=== PATIENT | female | born 1950 | race Caucasian/White ===

== ENCOUNTER 2016-07-17 11:24 | Emergency (ER) | payer MEDICARE, OTHER ==
[2016-07-17 11:57] VITALS: RESP 18
[2016-07-17] MEDS ORDERED: HYDROcodone/APAP 5-325MG 1 EACH TAB PO STA (12:44)
--- NOTE | 2016-07-17 12:44 | ED ---
Lower Extremity Injury HPI - General Chief Complaint: Extremity Injury, Lower Stated Complaint: RT LEG INJURY Time Seen by Provider: 07/17/16 12:28 Source: patient, RN notes reviewed Mode of arrival: wheelchair Limitations: no limitations - History of Present Illness Initial Comments: 65-year-old female presents emergency Department chief complaint of right foot pain. Patient states she is walking on the stairs and she twisted her foot. Patient now has some pain and swelling along the lateral left foot and pain with bearing weight. Patient states that she did not hit her head and this other injuries from the incident. Patient does admit to a history of fracture to this foot in the past. Patient denies any fever chills or cough cold runny nose with this. Patient states there is no other injuries from the incident. Patient states that she was concerned due to the pain in the inability to bear weight so she thought that she should be evaluated. Patient denies any recent fever, chills, shortness of breath, chest pain, back pain, abdominal pain, nausea vomiting, numbness or tingling, dysuria or hematuria, constipation or diarrhea, headaches or visual changes, or any other current symptoms. - Related Data Home Medications Medication Instructions Recorded Confirmed Ibuprofen [Motrin] 800 mg PO HS PRN 07/17/16 07/17/16 Previous Rx's Medication Instructions Recorded Hydrocodone/Acetaminophen [[place] 1 each PO Q6HR PRN #20 tab 07/17/16 5-325] Allergies Allergy/AdvReac Type Severity Reaction Status Date / Time Penicillins Allergy Swelling Verified 07/17/16 12:13 aspirin AdvReac Abdominal Verified 07/17/16 12:13 Pain Review of Systems ROS Statement: Those systems with pertinent positive or pertinent negative responses have been documented in the HPI. ROS Other: All systems not noted in ROS Statement are negative. Past Medical History Past Medical History: No Reported History History of Any Multi-Drug Resistant Organisms: None Reported Past Surgical History: Appendectomy, Bowel Resection, Breast Surgery, Cholecystectomy Additional Past Surgical History / Comment(s): rotator cuff x3 Past Psychological History: No Psychological Hx Reported Smoking Status: Former smoker Past Alcohol Use History: Occasional Past Drug Use History: None Reported General Exam - General Exam Comments Initial Comments: General: The patient is awake and alert, in no distress, and does not appear acutely ill. Neck: The neck is supple, there is no tenderness. Cardiovascular: There is a regular rate and rhythm. No murmur, rub or gallop is appreciated. Respiratory: Lungs are clear to auscultation, respirations are non-labored, breath sounds are equal. No wheezes, stridor, rales, or rhonchi. Musculoskeletal: Sensation intact with 2+ pulses at the right extremity. full Range of motion right knee and right ankle and right foot. Patient is paraspinal and lateral aspect of the right foot and ankle. No deformity noted. No redness or erythema. No open wound. Patient is unable to bear weight due to pain. Neurological: CN II-XII intact, There are no obvious motor or sensory deficits. Coordination appears grossly intact. Speech is normal. Skin: Skin is warm and dry and no rashes or lesions are noted. Psychiatric: Normal mood and affect. Limitations: no limitations Course Vital Signs 07/17/16 11:54 Temperature 97.1 F L Pulse Rate 87 Respiratory 18 Rate Blood Pressure 192/86 O2 Sat by Pulse 98 Oximetry Procedures - Orthopedic Splinting/Casting Injury #1 Side: right Lower Extremity Injury Location: ankle Lower Extremity Immobilizer: posterior splint (short leg) Medical Decision Making - Medical Decision Making 65-year-old female presents emergency Department chief complaint of right foot pain after stepping on the stairs. Patient's x-ray does show that he has a avulsion fracture to the ankle. At this time we will send the patient and give her follow-up towards appear we did discuss crutches. We discussed return parameters and follow-up. Patient stated that she understood all questions have been answered. She will be discharged home. - Radiology Data Radiology results: report reviewed, image reviewed Disposition Clinical Impression: Avulsion fracture of right ankle Disposition: HOME SELF-CARE Condition: Stable Instructions: Ankle Fracture (ED) Additional Instructions: Please use medication as discussed. Please follow up with family doctor if symptoms have not improved over the next two days. Please return to the emergency room if your symptoms increase or worsen or for any other concerns. Prescriptions: Hydrocodone/Acetaminophen [[place] 5-325] 1 each PO Q6HR PRN #20 tab PRN Reason: Pain Referrals: Caitie Costa MD [Primary Care Provider] - 1-2 days Atul Centeno MD [STAFF PHYSICIAN] - 1-2 days Time of Disposition: 13:09
--- NOTE | 2016-07-17 13:06 | XR ---
EXAMINATION TYPE: 3 views right ankle. 3 views right foot. DATE OF EXAM: 07/17/2016 12:53 PM COMPARISON: NONE HISTORY: 65-year-old female with pain after fall. FINDINGS: Ankle: Ankle mortise remains congruent with preservation of the distal tibiofibular blood. There is a cortic ated 6 mm bone fragment below the lateral malleolus compatible with sequela of remote injury. There i s degenerative spurring anteriorly at the tibiotalar joint with underlying ankle joint effusion. Joon tional 6 mm bone fragment on the dorsal talar head on the lateral view. Otherwise, no acute fracture or dislocation seen. Foot: Moderate degenerative joint space narrowing with marginal spurring and subchondral cystic change at t he first MTP joint with mild hallux valgus and large bunion formation. Incidental Tran's toe. No ac wilton fracture or dislocation. Type I accessory navicular. IMPRESSION: 1. Ankle: 6 mm bone fragment along the dorsal talar head with adjacent soft tissue swelling and ankle joint effusion. An age indeterminate capsular avulsion fracture is suggested. Correlate for any pinp oint tenderness in this location to assess acuity. 2. Ankle: Some degenerative spurring anteriorly at the ankle and sequela of remote injury at the late ral malleolus. 3. 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 No acute osseous abn ormality seen.
[2016-07-17 13:30] VITALS: BP 187/95; PULSE 78; TEMP 97.6
== END 2016-07-17 13:30 | disposition home or self-care (01) ==
LOC: EC 11:24
DX: S82.891A Other fracture of right lower leg, initial encounter for closed fracture (principal); W10.9XXA Fall (on) (from) unspecified stairs and steps, initial encounter; M19.071 Primary osteoarthritis, right ankle and foot; M21.611 Bunion of right foot; M20.11 Hallux valgus (acquired), right foot; Z88.0 Allergy status to penicillin; Z87.891 Personal history of nicotine dependence
CPT/HCPCS: 29515; 99284

== ENCOUNTER 2018-01-12 13:47 | Emergency (ER) | payer MEDICARE, OTHER ==
[2018-01-12] MEDS ORDERED: methylPREDNISolone SOD SUCCI 125 MG/2 ML VIAL IV STA (13:56)
[2018-01-12] MEDS ORDERED: FAMOTIDINE 20 MG/2 ML VIAL IV STA (13:56)
[2018-01-12] MEDS ORDERED: ALBUTEROL NEBULIZED 2.5 MG/3 ML INHALATION STA (13:56)
[2018-01-12] MEDS ORDERED: diphenhydrAMINE 50 MG/ML 1 ML VIAL IVP STA (13:56)
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
[2018-01-12 16:17] VITALS: BP 154/65; PULSE 88; RESP 20; TEMP 98.3
== END 2018-01-12 16:00 | disposition home or self-care (01) ==
LOC: EC 13:47
DX: T78.2XXA Anaphylactic shock, unspecified, initial encounter (principal); Z87.891 Personal history of nicotine dependence; Z91.030 Bee allergy status; Z88.0 Allergy status to penicillin; Z88.6 Allergy status to analgesic agent
CPT/HCPCS: 94640; 99284; 96374; 96375 ×2; J1200; J2930

== ENCOUNTER 2020-01-07 11:55 | Emergency (ER) | payer OTHER, MEDICARE ==
[2020-01-07] MEDS ORDERED: IBUPROFEN 400 MG TAB PO STA (12:37)
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
--- NOTE | 2020-01-07 14:10 | XR ---
EXAMINATION TYPE: XR lumbar spine 2 or 3V DATE OF EXAM: 01/07/2020 Comparison: 06/13/2016 Clinical History: 69-year-old female low back pain, trauma Findings: Cholecystectomy clips. Bowel content obscures the lumbosacral junction on the frontal view. Hypertrop hic facet arthropathy especially in the mid to lower lumbar spine which raise grade 1 anterolisthesis at L4-L5. Mild to moderate degenerative disc disease scattered throughout. Vertebral body heights ar e preserved. Impression: Hypertrophic facet arthropathy with degenerative grade 1 anterolisthesis at L4-L5. Mild to moderate d egenerative disc disease throughout. No vertebral compression collapse.
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
[2020-01-07 14:51] VITALS: BP 152/74; PULSE 87; RESP 17; TEMP 98.3
== END 2020-01-07 14:51 | disposition home or self-care (01) ==
LOC: EC 11:55
DX: M54.2 Cervicalgia (principal); M54.5 Low back pain; M62.830 Muscle spasm of back; Z87.891 Personal history of nicotine dependence; Z88.0 Allergy status to penicillin; Z88.6 Allergy status to analgesic agent; Z91.030 Bee allergy status; V40.5XXA Car driver injured in collision with pedestrian or animal in traffic accident, initial encounter; Y92.488 Other paved roadways as the place of occurrence of the external cause; Y93.89 Activity, other specified
CPT/HCPCS: 72100; 72125; 99284

== ENCOUNTER 2020-06-23 08:50 | Emergency (ER) | payer MEDICARE, BC ==
[2020-06-23 08:56] VITALS: RESP 18; TEMP 97.9
[2020-06-23] MEDS ORDERED: HYDROcodone/APAP 5-325MG 1 EACH TAB PO STA (09:11)
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
--- NOTE | 2020-06-23 09:39 | CT ---
EXAMINATION TYPE: CT brain cspine wo con DATE OF EXAM: 06/23/2020 COMPARISON: 01/07/2020 HISTORY: fall, forehead contusion, htn CT DLP: 1185.7 mGycm, Automated exposure control for dose reduction was used. CONTRAST: Patient injected with 0 mL of Isovue 300. CT of the brain is performed utilizing 3 mm thick sections through the posterior fossa and 3 mm thick sections through the remaining calvarium. Study is performed within 24 hours of arrival to the hospital. No abnormal hyperdensity is present to suggest an acute intracranial hemorrhage. No mass lesion is evident. No acute infarcts are evident. Ventricles and sulci are appropriate for the patient age. Paranasal sinuses and mastoid air cells within the [id number] are clear. There is soft tissue swelling over the right periorbital region. IMPRESSIONS: 1. Normal CT brain. 2. Mild soft tissue swelling right supraorbital region. CT cervical spine. COMPARISON: None CT of the cervical spine is performed in the axial plane at 2 mm thick sections. Reconstructed image s in the coronal, and sagittal plane are reviewed on the computer. No acute fractures are evident. Vertebral body alignment is normal. Disc space narrowing is present C4-5 C5-6. Some endplate spurring posteriorly is evident at these lev els as well. Anterior vertebral body spurring is present C4-C6. Vertebral body heights are preserved. No spinal canal stenosis is evident. Uncovertebral joint hypertrophy is present C4-5 causing moderate bilateral foraminal stenosis. Modera te right and mild left foraminal stenosis is present C5-6. Moderate left and mild right foraminal konstantin nosis is present C6-7. IMPRESSIONS: 1. Degenerative disc changes, uncovertebral joint hypertrophy contributing to foraminal narrowing. Th tobin findings are greatest at C4-5 C5-6. 2. No acute osseous abnormality.
--- NOTE | 2020-06-23 09:41 | XR ---
EXAMINATION TYPE: XR forearm LT DATE OF EXAM: 06/23/2020 COMPARISON: None HISTORY: Pain, fall TECHNIQUE: 2 view left forearm FINDINGS: An acute fracture is not identified. Old fractures of the mid diaphyseal radius and ulna ar e present. In the AP projection there is some subtle lucency within the distal metaphyseal radius. A displaced f racture on the accompanying hand images however is not evident. IMPRESSION: 1. No acute osseous abnormality left forearm
--- NOTE | 2020-06-23 09:42 | XR ---
EXAMINATION TYPE: XR hand complete LT DATE OF EXAM: 06/23/2020 COMPARISON: None HISTORY: Fall, pain TECHNIQUE: Three-view left hand FINDINGS: Structures are osteopenic. Mild diffuse joint space narrowing of the proximal distal interp halangeal joint spaces may be present. Some degenerative changes at the first carpal metacarpal junct ion. Distal radius and ulna appear intact. No acute fractures or dislocations are evident. IMPRESSION: 1. No acute osseous abnormality left hand. 2. Osteopenia. This could be correlated with bone density.
[2020-06-23] MEDS ORDERED: cloNIDine HCL 0.2 MG TAB PO STA (09:54)
[2020-06-23 11:09] VITALS: BP 177/93; PULSE 70
== END 2020-06-23 11:06 | disposition home or self-care (01) ==
LOC: EC 08:50
DX: S00.83XA Contusion of other part of head, initial encounter (principal); S40.019A Contusion of unspecified shoulder, initial encounter; M25.532 Pain in left wrist; I10 Essential (primary) hypertension; J45.909 Unspecified asthma, uncomplicated; Z79.51 Long term (current) use of inhaled steroids; Z79.899 Other long term (current) drug therapy; Z91.030 Bee allergy status; Z88.0 Allergy status to penicillin; Z88.6 Allergy status to analgesic agent; Z88.8 Allergy status to other drugs, medicaments and biological substances; Z88.5 Allergy status to narcotic agent; Z87.891 Personal history of nicotine dependence; W18.30XA Fall on same level, unspecified, initial encounter; Y93.01 Activity, walking, marching and hiking; Y92.524 Gas station as the place of occurrence of the external cause
CPT/HCPCS: 29125; 70450; 72125; 99284

== ENCOUNTER 2020-06-27 13:42 | Emergency (ER) | payer MEDICARE, BC ==
[2020-06-27 13:47] VITALS: TEMP 98.2
[2020-06-27] MEDS ORDERED: KETOROLAC 15 MG/ML 1 ML VIAL IVP STA (14:11)
[2020-06-27] MEDS ORDERED: SODIUM CHLORIDE 0.9% 500 ML 500 ML IV STA (14:11)
--- NOTE | 2020-06-27 14:29 | XR ---
EXAMINATION TYPE: XR chest 1V portable DATE OF EXAM: 06/27/2020 COMPARISON: NONE HISTORY: Shortness of breath. TECHNIQUE: Single frontal view of the chest is obtained. FINDINGS: There is no focal air space opacity, pleural effusion, or pneumothorax seen. The cardiac silhouette size is within normal limits. The osseous structures are intact. IMPRESSION: No acute process.
[2020-06-27 14:50] LABS: Basophils # (A) 0.1 k/uL (0-0.2); Basophils % (A) 2 %; Eosinophils # (A) 0.1 k/uL (0-0.7); Eosinophils % (A) 2 %; HCT 39.4 % (34.0-46.0); HGB 13.6 gm/dL (11.4-16.0); Lymphocytes # (A) 1.2 k/uL (1.0-4.8); Lymphocytes % (A) 15 %; MCH 35.8 pg (25.0-35.0); MCHC 34.5 g/dL (31.0-37.0); MCV 103.7 fL (80.0-100.0); Macrocytosis Slight; Mean Platelet Volume 6.9; Monocytes # (A) 0.5 k/uL (0-1.0); Monocytes % (A) 6 %; Neutrophils # (A) 5.9 k/uL (1.3-7.7); Neutrophils % (A) 74 %; Platelet Count 260 k/uL (150-450); RDW 13.2 % (11.5-15.5)
[2020-06-27 15:04] LABS: ALT 46 U/L (4-34); AST 31 U/L (14-36); African American GFR (CKD) >90 (>60 ml/min/1.73 sqM); Albumin 4.2 g/dL (3.5-5.0); Alkaline Phosphatase 110 U/L (38-126); Anion Gap 6 mmol/L; Blood Urea Nitrogen 15 mg/dL (7-17); C Reactive Protein <5.0 mg/L (<10.0); Calcium 9.4 mg/dL (8.4-10.2); Carbon Dioxide 28 mmol/L (22-30); Chloride 104 mmol/L (98-107); Glucose 102 mg/dL (74-99); LDH 614 U/L (313-618); Magnesium 2.3 mg/dL (1.6-2.3); Non-African American GFR(CKD) >90 (>60 ml/min/1.73 sqM); Potassium 3.9 mmol/L (3.5-5.1); Sodium 138 mmol/L (137-145); Total Bilirubin 0.5 mg/dL (0.2-1.3); Total Protein 6.8 g/dL (6.3-8.2)
[2020-06-27 15:06] LABS: INR 0.9 (<1.2); Partial Thromboplastin Time 22.4 sec (22.0-30.0); Prothrombin Time 9.4 sec (9.0-12.0)
--- NOTE | 2020-06-27 15:07 | ED ---
SOB HPI - General Chief Complaint: Shortness of Breath Stated Complaint: SOB/COVID+ Time Seen by Provider: 06/27/20 13:51 Source: patient Mode of arrival: ambulatory Limitations: no limitations - History of Present Illness Initial Comments: Patient is a 69-year-old female presenting to the emergency Department with complaints of shortness of breath, body aches and a headache for the last few days. Patient states her and her boyfriend just recently tested positive for Covid. She states she also was just in the ER after she fell hitting her right side of her forehead, she thought her headache was from that. Patient states since then she has developed some sinus congestion, body aches, mild shortness of breath when she gets up and walks around. She denies any chest pain. She states she does have a history of bronchitis. Mitz to having a low-grade temperature, no fevers today. She denies any abdominal pain, no nausea or vomiting, she has had one to 2 episodes of diarrhea but nothing that is significant. She states she has been able to drink water but her appetite is low for the past 1-2 days. Patient states she is prescribed Mercedita for her headache and chronic pain, she did take one this morning. Patient has no further complaints at this time. Upon arrival to the ER, she is afebrile, 100% on RA. - Related Data Home Medications Medication Instructions Recorded Confirmed Albuterol Inhaler [Ventolin Hfa 2 puff INHALATION RT-Q4H PRN 06/23/20 06/23/20 Inhaler] Budesonide/Formoterol Fumarate 2 puff INHALATION RT-BID 06/23/20 06/23/20 [Symbicort 160-4.5 Mcg Inhaler] Dorzolamide/Timolol/Pf 1 drop BOTH EYES BID 06/23/20 06/23/20 [Dorzolamide 2%-Timolol 0.5%] Gabapentin 800 mg PO HS PRN 06/23/20 06/23/20 HYDROcodone/APAP 5-325MG [[place] 1 tab PO TID PRN 06/23/20 06/23/20 5-325] Latanoprost/Pf [Latanoprost 0.005% 1 drop BOTH EYES HS 06/23/20 06/23/20 Eye Drop] Previous Rx's Medication Instructions Recorded amLODIPine [Norvasc] 5 mg PO DAILY #7 tab 06/23/20 Allergies Allergy/AdvReac Type Severity Reaction Status Date / Time bee venom protein (honey bee) Allergy Wheezing Verified 06/27/20 13:48 butorphanol [From Stadol] Allergy Unknown Verified 06/27/20 13:48 Penicillins Allergy Swelling Verified 06/27/20 13:48 prochlorperazine Allergy Unknown Verified 06/27/20 13:48 [From Compazine] aspirin AdvReac Abdominal Verified 06/27/20 13:48 Pain Review of Systems ROS Statement: Those systems with pertinent positive or pertinent negative responses have been documented in the HPI. ROS Other: All systems not noted in ROS Statement are negative. Past Medical History Past Medical History: Asthma History of Any Multi-Drug Resistant Organisms: None Reported Past Surgical History: Appendectomy, Bowel Resection, Breast Surgery, Cholecystectomy Additional Past Surgical History / Comment(s): left rotator cuff x3 Past Psychological History: No Psychological Hx Reported Smoking Status: Former smoker Past Alcohol Use History: Occasional Past Drug Use History: None Reported General Exam - General Exam Comments Initial Comments: GENERAL: Patient is well-developed and well-nourished. Patient is nontoxic and in no acute distress. HEAD: Atraumatic, normocephalic. EYES: Pupils equal round and reactive to light, extraocular movements intact, sclera anicteric, conjunctiva are normal. Eyelids were unremarkable. ENT: TMs normal, nares patent, oropharynx clear without exudates. Moist mucous membranes. NECK: Normal range of motion, supple without lymphadenopathy or JVD. LUNGS: Unlabored respirations. Breath sounds clear to auscultation bilaterally and equal. No wheezes rales or rhonchi. HEART: Regular rate and rhythm without murmurs, rubs or gallops. ABDOMEN: Soft, nontender, normoactive bowel sounds. No guarding, no rebound. No masses appreciated. : Deferred MUSCULOSKELETAL: Normal extremities with adequate strength and normal range of motion, no pitting or edema. No clubbing or cyanosis. NEUROLOGICAL: Patient is alert and oriented x 3. Motor and sensory are also intact. Cranial nerves II through XII grossly intact. Symmetrical smile. Normal speech, normal gait. PSYCH: Normal mood, normal affect. SKIN: Warm, Dry, normal turgor, no rashes or lesions noted. Limitations: no limitations Course Vital Signs 12/13/20 12/13/20 12/13/20 13:43 14:07 14:12 Temperature 98.2 F Pulse Rate 80 79 Respiratory 18 22 22 Rate Blood Pressure 196/83 198/98 O2 Sat by Pulse 100 100 Oximetry 06/27/20 15:16 Temperature Pulse Rate 71 Respiratory 20 Rate Blood Pressure 170/92 O2 Sat by Pulse 98 Oximetry Medical Decision Making - Medical Decision Making Patient is a 69-year-old female here for shortness of breath, congestion and a mild headache over the past 2 days. Her boyfriend just tested positive for Covid today. Her symptoms started about 2 days ago. He is afebrile here, 100 % on room air. Patient's exam is unremarkable. She does have some bruising from a recent fall on her forehead, nothing that is new. Patient's labs are stable, normal white count 8.0, kidney function is stable, lactic acid is 1.1. CRP is less than 5, LDH is 600. Chest x-ray shows no acute process. Patient was given some fluids and Toradol and does report improvement in her symptoms. I discussed these findings with the patient. She can continue with her already prescribed a medication for her headache, patient's blood pressure is elevated today, she states she normally does not have high blood pressure but has been really stressed with her illness and that her boyfriend is in the hospital as well. Patient was given 0.2 of clonidine. She is stable for discharge. She is agreeable with this plan of care. She'll follow-up with her regular doctor. Return parameters were discussed with the patient she verbalized understanding. Case discussed with Dr. Smith. - Lab Data Result diagrams: 06/27/20 14:22 06/27/20 14:22 Lab Results 06/27/20 06/27/20 06/27/20 Range/Units 14:22 14:22 14:22 WBC 8.0 (3.8-10.6) k/uL RBC 3.80 (3.80-5.40) m/uL Hgb 13.6 (11.4-16.0) gm/dL Hct 39.4 (34.0-46.0) % MCV 103.7 H (80.0-100.0) fL MCH 35.8 H (25.0-35.0) pg MCHC 34.5 (31.0-37.0) g/dL RDW 13.2 (11.5-15.5) % Plt Count 260 (150-450) k/uL MPV 6.9 Neutrophils % 74 % Lymphocytes % 15 % Monocytes % 6 % Eosinophils % 2 % Basophils % 2 % Neutrophils # 5.9 (1.3-7.7) k/uL Lymphocytes # 1.2 (1.0-4.8) k/uL Monocytes # 0.5 (0-1.0) k/uL Eosinophils # 0.1 (0-0.7) k/uL Basophils # 0.1 (0-0.2) k/uL Macrocytosis Slight PT 9.4 (9.0-12.0) sec INR 0.9 (<1.2) APTT 22.4 (22.0-30.0) sec Sodium 138 (137-145) mmol/L Potassium 3.9 (3.5-5.1) mmol/L Chloride 104 (98-107) mmol/L Carbon Dioxide 28 (22-30) mmol/L Anion Gap 6 mmol/L BUN 15 (7-17) mg/dL Creatinine 0.53 (0.52-1.04) mg/dL Est GFR (CKD-EPI)AfAm >90 (>60 ml/min/1.73 sqM) Est GFR (CKD-EPI)NonAf >90 (>60 ml/min/1.73 sqM) Glucose 102 H (74-99) mg/dL Plasma Lactic Acid Jimmie (0.7-2.0) mmol/L Calcium 9.4 (8.4-10.2) mg/dL Magnesium 2.3 (1.6-2.3) mg/dL Total Bilirubin 0.5 (0.2-1.3) mg/dL AST 31 (14-36) U/L ALT 46 H (4-34) U/L Alkaline Phosphatase 110 (38-126) U/L Lactate Dehydrogenase 614 (313-618) U/L C-Reactive Protein <5.0 (<10.0) mg/L Total Protein 6.8 (6.3-8.2) g/dL Albumin 4.2 (3.5-5.0) g/dL 06/27/20 Range/Units 14:22 WBC (3.8-10.6) k/uL RBC (3.80-5.40) m/uL Hgb (11.4-16.0) gm/dL Hct (34.0-46.0) % MCV (80.0-100.0) fL MCH (25.0-35.0) pg MCHC (31.0-37.0) g/dL RDW (11.5-15.5) % Plt Count (150-450) k/uL MPV Neutrophils % % Lymphocytes % % Monocytes % % Eosinophils % % Basophils % % Neutrophils # (1.3-7.7) k/uL Lymphocytes # (1.0-4.8) k/uL Monocytes # (0-1.0) k/uL Eosinophils # (0-0.7) k/uL Basophils # (0-0.2) k/uL Macrocytosis PT (9.0-12.0) sec INR (<1.2) APTT (22.0-30.0) sec Sodium (137-145) mmol/L Potassium (3.5-5.1) mmol/L Chloride (98-107) mmol/L Carbon Dioxide (22-30) mmol/L Anion Gap mmol/L BUN (7-17) mg/dL Creatinine (0.52-1.04) mg/dL Est GFR (CKD-EPI)AfAm (>60 ml/min/1.73 sqM) Est GFR (CKD-EPI)NonAf (>60 ml/min/1.73 sqM) Glucose (74-99) mg/dL Plasma Lactic Acid Jimmie 1.1 (0.7-2.0) mmol/L Calcium (8.4-10.2) mg/dL Magnesium (1.6-2.3) mg/dL Total Bilirubin (0.2-1.3) mg/dL AST (14-36) U/L ALT (4-34) U/L Alkaline Phosphatase (38-126) U/L Lactate Dehydrogenase (313-618) U/L C-Reactive Protein (<10.0) mg/L Total Protein (6.3-8.2) g/dL Albumin (3.5-5.0) g/dL - EKG Data EKG Comments: Normal sinus rhythm, possible left atrial enlargement, left ventricular hypertrophy, no signs of acute ischemia. Ventricular rate 68, NE interval 136, QT 400. Disposition Clinical Impression: COVID-19, Dehydration Disposition: HOME SELF-CARE Condition: Stable Instructions (If sedation given, give patient instructions): Upper Respiratory Infection (DC) Additional Instructions: Please return to the Emergency Department if symptoms worsen or any other concerns. Workup today was normal, continue with Tylenol for discomfort. Make sure to drink plenty of water, rest. Follow-up with your regular doctor. Is patient prescribed a controlled substance at d/c from ED?: No Referrals: Efrain Colorado DO [Primary Care Provider] - 1-2 days
[2020-06-27 15:20] VITALS: BP 170/92; PULSE 71; RESP 20
[2020-06-27] MEDS ORDERED: cloNIDine HCL 0.2 MG TAB PO STA (15:41)
== END 2020-06-27 15:56 | disposition home or self-care (01) ==
LOC: EC 13:42
DX: U07.1 COVID-19 (principal); E86.0 Dehydration; S00.83XA Contusion of other part of head, initial encounter; R03.0 Elevated blood-pressure reading, without diagnosis of hypertension; J45.909 Unspecified asthma, uncomplicated; Z79.51 Long term (current) use of inhaled steroids; Z91.030 Bee allergy status; Z88.5 Allergy status to narcotic agent; Z88.0 Allergy status to penicillin; Z88.6 Allergy status to analgesic agent; Z88.8 Allergy status to other drugs, medicaments and biological substances; Z87.891 Personal history of nicotine dependence; W19.XXXA Unspecified fall, initial encounter
CPT/HCPCS: 36415; 93005; 80053; 83605; 83615; 83735; 85025; 85610; 85730; 86140; 84145; 71045; 99285; 96374; 96361; J1885

== ENCOUNTER → 2021-01-07 | Outpatient (CLI) | payer MEDICARE, BC ==
--- NOTE | 2021-01-07 12:44 | XR ---
EXAMINATION TYPE: XR wrist complete LT DATE OF EXAM: 01/07/2021 COMPARISON: None HISTORY: Pain from fall 6 days prior TECHNIQUE: 4 view left wrist FINDINGS: There is advanced degenerative joint changes at the first carpal metacarpal junction. Diffu se joint space narrowing is present. No acute fractures are identified. Patient has limited range of motion and is unable to turn for improved scaphoid view. MRI or nuclear medicine bone scan could be performed for pain at the anatomic snuff box. IMPRESSION: 1. Generative changes first carpometacarpal junction. 2. An acute osseous abnormality is not identified. Please see above discussion.
--- NOTE | 2021-01-07 12:45 | XR ---
EXAMINATION TYPE: XR Hip Bilateral Complete DATE OF EXAM: 01/07/2021 COMPARISON: None HISTORY: History of osteoporosis, pain from fall TECHNIQUE: Two-view bilateral hips FINDINGS: No acute fractures are identified. Femoral heads articulate with the acetabulum. Joint spac es appear preserved. IMPRESSION: 1. No acute osseous abnormality bilateral hips.
--- NOTE | 2021-01-07 12:47 | XR ---
EXAMINATION TYPE: XR lumbosacral spine min 4V DATE OF EXAM: 01/07/2021 COMPARISON: None HISTORY: Pain, fall TECHNIQUE: 5 view lumbar spine FINDINGS: There are 5 lumbar-type vertebral bodies. The pedicles are intact. There is some disc space narrowing posteriorly at L2-3 L3-4. No spondylolytic defects are evident. Mild facet degenerative ch anges present. IMPRESSION: 1. Degenerative disc changes lumbar spine
== END | disposition home or self-care (01) ==
LOC: RADXRMAIN 11:38
PROVIDERS: ATTEND Family Medicine
DX: M51.36 Other intervertebral disc degeneration, lumbar region (principal); M81.0 Age-related osteoporosis without current pathological fracture; M25.551 Pain in right hip; M25.552 Pain in left hip; M25.532 Pain in left wrist; W19.XXXA Unspecified fall, initial encounter
CPT/HCPCS: 72110; 73521

== ENCOUNTER 2021-03-14 11:48 | Emergency (ER) | payer MEDICARE ==
[2021-03-14 11:57] VITALS: BP 148/84; PULSE 79; RESP 18; TEMP 98.3
--- NOTE | 2021-03-14 12:31 | ED ---
Skin/Abscess/FB HPI - General Chief complaint: Skin/Abscess/Foreign Body Stated complaint: infection in leg Time Seen by Provider: 03/14/21 12:10 Source: patient, family, RN notes reviewed, old records reviewed Mode of arrival: ambulatory Limitations: no limitations - History of Present Illness Initial comments: 70-year-old well-appearing white female, oriented 4, presents to the emergency room with complaints of left lower leg skin tear wound not healing. She states that she did see her primary care doctor and was prescribed oral antibiotics at beginning of the month. She has been keeping it open to air and its been burning and occasionally has clear drainage. Patient denies any fevers. There is no redness or streaking. dry scales noted. Tetanus is up-to-date. MD complaint: other (Skin tear) -: week(s) (3) Tetanus Up to Date: yes Location: LLE (Approximate 2 cm skin tear to the left lower extremity) Severity scale (1-10): 9 Quality: burning Consistency: intermittent Improves with: none Worsens with: palpation Context: other (Skin tear from a stick 3 weeks ago) Associated symptoms: denies other symptoms Treatments Prior to Arrival: antibiotic - Related Data Home Medications Medication Instructions Recorded Confirmed Albuterol Inhaler [Ventolin Hfa 2 puff INHALATION RT-Q4H PRN 06/23/20 06/23/20 Inhaler] Budesonide/Formoterol Fumarate 2 puff INHALATION RT-BID 06/23/20 06/23/20 [Symbicort 160-4.5 Mcg Inhaler] Dorzolamide/Timolol/Pf 1 drop BOTH EYES BID 06/23/20 06/23/20 [Dorzolamide 2%-Timolol 0.5%] Gabapentin 800 mg PO HS PRN 06/23/20 06/23/20 HYDROcodone/APAP 5-325MG [[place] 1 tab PO TID PRN 06/23/20 06/23/20 5-325] Latanoprost/Pf [Latanoprost 0.005% 1 drop BOTH EYES HS 06/23/20 06/23/20 Eye Drop] Previous Rx's Medication Instructions Recorded amLODIPine [Norvasc] 5 mg PO DAILY #7 tab 06/23/20 Allergies Allergy/AdvReac Type Severity Reaction Status Date / Time bee venom protein (honey bee) Allergy Wheezing Verified 03/14/21 11:57 butorphanol [From Stadol] Allergy Unknown Verified 03/14/21 11:57 Penicillins Allergy Swelling Verified 03/14/21 11:57 prochlorperazine Allergy Unknown Verified 03/14/21 11:57 [From Compazine] aspirin AdvReac Abdominal Verified 03/14/21 11:57 Pain Review of Systems ROS Statement: Those systems with pertinent positive or pertinent negative responses have been documented in the HPI. ROS Other: All systems not noted in ROS Statement are negative. Past Medical History Past Medical History: Asthma History of Any Multi-Drug Resistant Organisms: None Reported Past Surgical History: Appendectomy, Bowel Resection, Breast Surgery, Cholecystectomy Additional Past Surgical History / Comment(s): left rotator cuff x3 , nerve endings in back "burnt" Past Psychological History: No Psychological Hx Reported Smoking Status: Former smoker Past Alcohol Use History: Occasional Past Drug Use History: None Reported General Exam Limitations: no limitations General appearance: alert, in no apparent distress Head exam: Present: atraumatic, normocephalic, normal inspection Eye exam: Present: normal appearance, PERRL, EOMI. Absent: scleral icterus, conjunctival injection, periorbital swelling ENT exam: Present: normal exam, normal oropharynx, mucous membranes moist Neck exam: Present: normal inspection, full ROM. Absent: tenderness, meningismus, lymphadenopathy Respiratory exam: Present: normal lung sounds bilaterally. Absent: respiratory distress, wheezes, rales, rhonchi, stridor Cardiovascular Exam: Present: regular rate, normal rhythm, normal heart sounds. Absent: systolic murmur, diastolic murmur, rubs, gallop, clicks Extremities exam: Present: normal inspection, full ROM, normal capillary refill. Absent: tenderness, pedal edema, joint swelling, calf tenderness Back exam: Absent: tenderness, CVA tenderness (R), CVA tenderness (L) Neurological exam: Present: alert, oriented X3, CN II-XII intact Psychiatric exam: Present: normal affect, normal mood Skin exam: Present: warm, dry, normal color, other (Skin tear approximately 1- 1/2 cm to the lower leg lateral side, no drainage, dry scale noted with small area of moist granulating tissue,). Absent: rash, erythema, urticaria, vesicles, mottled Course Vital Signs 03/14/21 11:53 Temperature 98.3 F Pulse Rate 79 Respiratory 18 Rate Blood Pressure 148/84 O2 Sat by Pulse 98 Oximetry Medical Decision Making - Medical Decision Making This is a small skin tear that seems to be granulating well. There is no evidence of purulent drainage or streaking. Patient was directed to use Neosporin twice a day and keep covered with gauze. Follow up with her primary care doctor within the week. She did just finish Keflex for this injury and her tetanus shot is up-to-date. Case discussed with Dr. Soni Disposition Clinical Impression: Skin tear Disposition: HOME SELF-CARE Condition: Good Instructions (If sedation given, give patient instructions): Skin Tear (ED) Additional Instructions: Use a Neosporin dressing and keep covered. Follow up with her primary care doctor. Is patient prescribed a controlled substance at d/c from ED?: No Referrals: Efrain Colorado DO [Primary Care Provider] - 1-2 days Time of Disposition: 12:31
[2021-03-14] MEDS ORDERED: BACITRACIN OINT 1 EACH PACKET TOPICAL ONE (12:33)
== END 2021-03-14 12:48 | disposition home or self-care (01) ==
LOC: EC 11:48
DX: S81.812A Laceration without foreign body, left lower leg, initial encounter (principal); J45.909 Unspecified asthma, uncomplicated; Z79.51 Long term (current) use of inhaled steroids; Z79.899 Other long term (current) drug therapy; Z87.891 Personal history of nicotine dependence; Z88.0 Allergy status to penicillin; Z88.5 Allergy status to narcotic agent; Z88.6 Allergy status to analgesic agent; Z88.8 Allergy status to other drugs, medicaments and biological substances; W22.8XXA Striking against or struck by other objects, initial encounter
CPT/HCPCS: 99282

== ENCOUNTER 2021-12-18 14:12 | Emergency (ER) | payer MEDICARE ==
[2021-12-18] MEDS ORDERED: ALBUTEROL NEBULIZED 2.5 MG/3 ML INHALATION STA (14:19)
[2021-12-18] MEDS ORDERED: FAMOTIDINE 20 MG/2 ML VIAL IV STA (14:19)
--- NOTE | 2021-12-18 14:22 | ED ---
General Adult HPI - General Source: patient, RN notes reviewed, old records reviewed <Rayshawn Landis - Last Filed: 12/18/21 15:47> <Antonio Zuniga - Last Filed: 12/18/21 17:06> - General Stated complaint: Allergic Reaction Time Seen by Provider: 12/18/21 14:12 - History of Present Illness Initial comments: This is a 71-year-old female presents emergency Department after abdomen bit by a hornet. Patient states she started having difficulty breathing she gave herself an EpiPen. Patient states the symptoms did not go away she called EMS. When EMS arrived they gave her another epi Solu-Medrol and Benadryl. Patient states his symptoms have gotten much better however she still having a little bit of wheezing. Patient denies any chest pain patient denies any palpitations. Patient denies any rashes or hives. Patient states she's had ALLERGIC reactions in the past. (Rayshawn Landis) - Related Data Home Medications Medication Instructions Recorded Confirmed Albuterol Inhaler [Ventolin Hfa 2 puff INHALATION RT-Q4H PRN 06/23/20 12/18/21 Inhaler] Dorzolamide/Timolol/Pf 1 drop BOTH EYES BID 06/23/20 12/18/21 [Dorzolamide 2%-Timolol 0.5%] Gabapentin 800 mg PO HS 06/23/20 12/18/21 HYDROcodone/APAP 5-325MG [[place] 1 tab PO BID PRN 06/23/20 12/18/21 5-325] Latanoprost/Pf [Latanoprost 0.005% 1 drop BOTH EYES HS 06/23/20 12/18/21 Eye Drop] Brimonidine Tartrate [Alphagan P 1 drop BOTH EYES BID 12/18/21 12/18/21 0.2% Ophth Soln] Gabapentin 800 mg PO DAILY PRN 12/18/21 12/18/21 Previous Rx's Medication Instructions Recorded EPINEPHrine (Auto Inject) [Epipen] 0.3 mg IM ONCE PRN #2 each 12/18/21 predniSONE [Deltasone] 20 mg PO BID #10 tab 12/18/21 Allergies Allergy/AdvReac Type Severity Reaction Status Date / Time bee venom protein (honey bee) Allergy Wheezing Verified 06/05/22 17:01 butorphanol [From Stadol] Allergy Unknown Verified 12/18/21 17:01 Penicillins Allergy Swelling Verified 12/18/21 17:01 throat prochlorperazine Allergy Unknown Verified 12/18/21 17:01 [From Compazine] aspirin AdvReac Abdominal Verified 12/18/21 17:01 Pain Review of Systems ROS Other: All systems not noted in ROS Statement are negative. <Rayshawn Landis - Last Filed: 12/18/21 15:47> ROS Other: All systems not noted in ROS Statement are negative. <Antonio Zuniga - Last Filed: 12/18/21 17:06> ROS Statement: Those systems with pertinent positive or pertinent negative responses have been documented in the HPI. Past Medical History Past Medical History: Asthma, Eye Disorder Additional Past Medical History / Comment(s): BILAT GLAUCOMA, MAC. DEGENERATION History of Any Multi-Drug Resistant Organisms: None Reported Past Surgical History: Appendectomy, Bowel Resection, Breast Surgery, Cholecystectomy, Hysterectomy, Orthopedic Surgery, Tonsillectomy Additional Past Surgical History / Comment(s): left rotator cuff x3 , nerve endings in back "burnt", COLONOSOCPY, BILAT CATARACTS REMOVED WITH LENS IMPLANT, BILAT KNEE SX, Past Anesthesia/Blood Transfusion Reactions: No Reported Reaction Smoking Status: Former smoker - Past Family History Father Family Medical History: Cancer Mother Family Medical History: Cancer Sister(s) Family Medical History: Cancer Additional Family Medical History / Comment(s): 2 SISTERS WITH CANCER Brother(s) Family Medical History: Cancer Additional Family Medical History / Comment(s): 2 BROTHERS WITH CANCER Daughter(s) Family Medical History: Cancer <Rayshawn Landis - Last Filed: 12/18/21 15:47> General Exam <Rayshawn Landis - Last Filed: 12/18/21 15:47> - General Exam Comments Initial Comments: GENERAL: Patient is well-developed and well-nourished. Patient is nontoxic and well- hydrated and is in mild distress. ENT: Neck is soft and supple. No significant lymphadenopathy is noted. Oropharynx is clear. Moist mucous membranes. Neck has full range of motion without eliciting any pain. EYES: The sclera were anicteric and conjunctiva were pink and moist. Extraocular movements were intact and pupils were equal round and reactive to light. Eyelids were unremarkable. PULMONARY: Unlabored respirations. Good breath sounds bilaterally. Patient has expiratory wheezing CARDIOVASCULAR: There is a regular rate and rhythm without any murmurs gallops or rubs. ABDOMEN: Soft and nontender with normal bowel sounds. SKIN: Skin is clear with no lesions or rashes and otherwise unremarkable. NEUROLOGIC: Patient is alert and oriented x3. Cranial nerves II through XII are grossly intact. Motor and sensory are also intact. Normal speech, volume and content. Symmetrical smile. MUSCULOSKELETAL: Normal extremities with adequate strength and full range of motion. LYMPHATICS: No significant lymphadenopathy is noted PSYCHIATRIC: Normal psychiatric evaluation. (Rayshawn Landis) Course <Antonio Zuniga - Last Filed: 12/18/21 17:06> Vital Signs 12/18/21 12/18/21 12/18/21 14:14 14:32 14:45 Temperature 97.7 F Pulse Rate 107 H 99 114 H Respiratory 24 Rate Blood Pressure 167/80 O2 Sat by Pulse 98 Oximetry 12/18/21 12/18/21 14:53 15:51 Temperature Pulse Rate 98 Respiratory 24 18 Rate Blood Pressure 156/73 O2 Sat by Pulse 100 Oximetry - Reevaluation(s) Reevaluation #1: 12/18/21 17:04 The patient was endorsed to me at our shift change pending further evaluation and treatment. Patient did sustain a wasp sting prior to arrival. She did use an epinephrine pen. She did require treatment here. At this time she states she is feeling much improved and would if failing to go home. Oropharynx is clear no evidence of any posterior pharyngeal hyperemia or edema. No stridor JVD or bruits on neck exam chest lungs are clear no evidence of any wheezing good aeration. Patient will be discharged on a short course of steroids and a refill of her epinephrine pen prescription. (Antonio Zuniga) Medical Decision Making <Rayshawn Landis - Last Filed: 12/18/21 15:47> - Medical Decision Making EKG shows sinus tachycardia at 108 bpm NE interval is 120 QRS is 80 QT interval is 2:30 QTC is 302. Patient's EKG shows no ST segment elevation or depression. Patient received another epinephrine in the emergency department and another 25 of Solu-Medrol. Patient also she 20 mg of Pepcid and a breathing treatment. Dr. Zuniga will be taking over the care of this patient at 4 PM (Rayshawn Landis) Disposition <Rayshawn Landis - Last Filed: 12/18/21 15:47> Is patient prescribed a controlled substance at d/c from ED?: No Decision Date: 12/18/21 Decision Time: 17:06 <Antonio Zuniga - Last Filed: 12/18/21 17:06> Clinical Impression: Allergic reaction to insect sting, Allergic reaction Disposition: HOME SELF-CARE Condition: Good Instructions (If sedation given, give patient instructions): Anaphylaxis (ED), Insect Bite or Sting (ED) Prescriptions: predniSONE [Deltasone] 20 mg PO BID #10 tab EPINEPHrine (Auto Inject) [Epipen] 0.3 mg IM ONCE PRN #2 each PRN Reason: Anaphylaxis Referrals: Efrain Colorado DO [Primary Care Provider] - 1-2 days
[2021-12-18 14:23] VITALS: TEMP 97.7
[2021-12-18] MEDS ORDERED: diphenhydrAMINE 50 MG/ML 1 ML VIAL IVP STA (14:48)
[2021-12-18] MEDS ORDERED: KETOROLAC 15 MG/ML 1 ML VIAL IVP STA (15:01)
[2021-12-18 15:52] VITALS: PULSE 98
[2021-12-18 17:52] VITALS: BP 121/73; RESP 16
== END 2021-12-18 17:51 | disposition home or self-care (01) ==
LOC: EC 14:12
DX: T63.451A Toxic effect of venom of hornets, accidental (unintentional), initial encounter (principal); J45.909 Unspecified asthma, uncomplicated; Z87.891 Personal history of nicotine dependence; Z79.51 Long term (current) use of inhaled steroids; Z79.899 Other long term (current) drug therapy
CPT/HCPCS: 94640; 93005; 99285; 96374; 96375 ×2; 96372; J0171; J1200; J1885

== ENCOUNTER 2022-12-22 16:51 | Inpatient (IN) | payer MEDICARE ==
[2022-12-22] MEDS ORDERED: SODIUM CHLORIDE 0.9% 1,000 ML IV STA (17:45)
[2022-12-22] MEDS ORDERED: MORPHINE SULFATE 4 MG/ML SYRINGE IV STA (17:45)
[2022-12-22] MEDS ORDERED: CLINDAMYCIN 600 MG in DEXTROSE 5% IN WATER 50 ML IVPB STA ×2 (17:45)
--- NOTE | 2022-12-22 17:45 | ED ---
Recheck HPI - General Chief Complaint: Wound/Laceration Stated Complaint: Leg infection Time Seen by Provider: 12/22/22 17:03 Source: EMS, RN notes reviewed, old records reviewed Mode of arrival: EMS Limitations: no limitations - History of Present Illness Initial Comments: This is a 72-year-old female to the ER today. She presents today for evaluation of leg wounds. Patient had a wound on her right leg escalante from a cat left leg from scraping against an table. Patient does have redness and scabbing to both wounds. She is mainly complaining of current pain. No fevers no other complaints. Patient denies any streaking of the wounds upper leg MD Complaint: wound re-check -: days(s) Returns Today for: wound recheck, Called Because of Abnormal Lab/Test, persistent/worsening pain related to initial visit Symptoms Since Prior Visit: no new symptoms Context: planned re-check Associated Symptoms: none Treatments Prior to Arrival: other (0) - Related Data Home Medications Medication Instructions Recorded Confirmed Albuterol Inhaler [Ventolin Hfa 2 puff INHALATION RT-Q4H PRN 06/23/20 12/18/21 Inhaler] Dorzolamide/Timolol/Pf 1 drop BOTH EYES BID 06/23/20 12/18/21 [Dorzolamide 2%-Timolol 0.5%] Gabapentin 800 mg PO HS 06/23/20 12/18/21 HYDROcodone/APAP 5-325MG [[place] 1 tab PO BID PRN 06/23/20 12/18/21 5-325] Latanoprost/Pf [Latanoprost 0.005% 1 drop BOTH EYES HS 06/23/20 12/18/21 Eye Drop] Brimonidine Tartrate [Alphagan P 1 drop BOTH EYES BID 12/18/21 12/18/21 0.2% Ophth Soln] Gabapentin 800 mg PO DAILY PRN 12/18/21 12/18/21 Previous Rx's Medication Instructions Recorded EPINEPHrine (Auto Inject) [Epipen] 0.3 mg IM ONCE PRN #2 each 12/18/21 predniSONE [Deltasone] 20 mg PO BID #10 tab 12/18/21 Allergies Allergy/AdvReac Type Severity Reaction Status Date / Time bee venom protein (honey bee) Allergy Wheezing Verified 12/22/22 17:05 butorphanol [From Stadol] Allergy Unknown Verified 12/22/22 17:05 Penicillins Allergy Swelling Verified 12/22/22 17:05 throat prochlorperazine Allergy Unknown Verified 12/22/22 17:05 [From Compazine] aspirin AdvReac Abdominal Verified 12/22/22 17:05 Pain Review of Systems ROS Statement: Those systems with pertinent positive or pertinent negative responses have been documented in the HPI. ROS Other: All systems not noted in ROS Statement are negative. Past Medical History Past Medical History: Asthma, Eye Disorder Additional Past Medical History / Comment(s): BILAT GLAUCOMA, MAC. DEGENERATION History of Any Multi-Drug Resistant Organisms: None Reported Past Surgical History: Appendectomy, Bowel Resection, Breast Surgery, Cholecystectomy, Hysterectomy, Orthopedic Surgery, Tonsillectomy Additional Past Surgical History / Comment(s): left rotator cuff x3 , nerve endings in back "burnt", COLONOSOCPY, BILAT CATARACTS REMOVED WITH LENS IMPLANT, BILAT KNEE SX, Past Anesthesia/Blood Transfusion Reactions: No Reported Reaction Past Psychological History: No Psychological Hx Reported Smoking Status: Former smoker Past Alcohol Use History: Occasional Past Drug Use History: None Reported - Past Family History Father Family Medical History: Cancer Mother Family Medical History: Cancer Sister(s) Family Medical History: Cancer Additional Family Medical History / Comment(s): 2 SISTERS WITH CANCER Brother(s) Family Medical History: Cancer Additional Family Medical History / Comment(s): 2 BROTHERS WITH CANCER Daughter(s) Family Medical History: Cancer General Exam Limitations: no limitations General appearance: alert, in no apparent distress Head exam: Present: atraumatic, normocephalic, normal inspection Eye exam: Present: normal appearance, PERRL, EOMI. Absent: scleral icterus, conjunctival injection, periorbital swelling ENT exam: Present: normal exam, mucous membranes moist Neck exam: Present: normal inspection. Absent: tenderness, meningismus, lymphadenopathy Respiratory exam: Present: normal lung sounds bilaterally. Absent: respiratory distress, wheezes, rales, rhonchi, stridor Cardiovascular Exam: Present: regular rate, normal rhythm, normal heart sounds. Absent: systolic murmur, diastolic murmur, rubs, gallop, clicks GI/Abdominal exam: Present: soft, normal bowel sounds. Absent: distended, tenderness, guarding, rebound, rigid Extremities exam: Present: normal inspection, full ROM, normal capillary refill. Absent: tenderness, pedal edema, joint swelling, calf tenderness Back exam: Present: normal inspection Neurological exam: Present: alert, oriented X3, CN II-XII intact Psychiatric exam: Present: normal affect, normal mood Skin exam: Present: warm, dry, intact, normal color. Absent: rash Course Vital Signs 12/22/22 12/22/22 16:59 18:37 Temperature 99.3 F Pulse Rate 79 80 Respiratory 18 18 Rate Blood Pressure 178/97 178/97 O2 Sat by Pulse 99 99 Oximetry - Reevaluation(s) Reevaluation #1: 12/22/22 18:01 Medical records reviewed Reevaluation #2: 12/22/22 18:01 Patient symptoms are improved Reevaluation #3: 12/22/22 18:01 Patient wanted results questions are answered Reevaluation #4: 12/22/22 18:01 Was pt. sent in by a medical professional or institution? @ -no Did you speak to anyone other than the patient for history? @ -no Did you review nursing and triage notes? @ -agree Were old charts reviewed? @ -no Differential Diagnosis? @ -prior EKG interpreted by me (3pts min.)? @ -yes X-rays interpreted by me (1pt min.)? @ -yes CT interpreted by me (1pt min.)? @ -no U/S interpreted by me (1pt. min.)? @ -no What testing was considered but not performed? (CT, X-rays, U/S, labs)? Why? @ -no What meds were considered but not given? Why? @ -no Did you discuss the management of the patient with other professionals? @ -no Did you reconcile home meds? @ -no Was smoking cessation discussed for >3mins.? @ -no Was critical care preformed (if so, how long)? @ -no Were there social determinants of health that impacted care today? How? (Homelessness, low income, unemployed, alcoholism, drug addiction, transportation, low edu. Level, literacy, decrease access to med. care, prison, rehab)? @ -no Was there de-escalation of care discussed even if they declined? (Discuss DNR or withdrawal of care, Hospice)? @ -no What co-morbidities impacted this encounter? (DM, HTN, Smoking, COPD, CAD, Cancer, CVA, Hep., AIDS, mental health diagnosis, sleep apnea, morbid obesity)? @ -none Was patient admitted / discharged? @ - Undiagnosed new problem with uncertain prognosis? @ -no Drug Therapy requiring intensive monitoring for toxicity (Heparin, Nitro, Insulin, Cardizem)? @ -no Were any procedures done? @ -no Diagnosis/symptom? @ - Acute, or Chronic, or Acute on Chronic? @ -no Uncomplicated (without systemic symptoms) or Complicated (systemic symptoms)? @ -uncomplicated Side effects of treatment? @ -no Exacerbation, Progression, or Severe Exacerbation] @ -no Poses a threat to life or bodily function? @ -yes - Consultations Consultation #1: Spoke with admitting physicians will agree to admit the patient Medical Decision Making - Medical Decision Making 72 female DF for evaluation of bilateral lower extremity cellulitis secondary to right leg cat scratch, left leg patient sustained laceration from entail. Patient has increasing cellulitis pain with nausea and not feeling well weakness. Patient will admit for symptom management - Lab Data Result diagrams: 12/22/22 18:25 12/22/22 18:25 Lab Results 12/22/22 12/22/22 Range/Units 18:25 18:25 WBC 7.5 (3.8-10.6) k/uL RBC 3.99 (3.80-5.40) m/uL Hgb 13.4 (11.4-16.0) gm/dL Hct 40.6 (34.0-46.0) % MCV 101.6 H (80.0-100.0) fL MCH 33.5 (25.0-35.0) pg MCHC 33.0 (31.0-37.0) g/dL RDW 13.1 (11.5-15.5) % Plt Count 332 (150-450) k/uL MPV 7.7 Neutrophils % 68 % Lymphocytes % 23 % Monocytes % 5 % Eosinophils % 2 % Basophils % 0 % Neutrophils # 5.1 (1.3-7.7) k/uL Lymphocytes # 1.8 (1.0-4.8) k/uL Monocytes # 0.4 (0-1.0) k/uL Eosinophils # 0.1 (0-0.7) k/uL Basophils # 0.0 (0-0.2) k/uL Macrocytosis Slight Sodium 139 (137-145) mmol/L Potassium 3.9 (3.5-5.1) mmol/L Chloride 101 (98-107) mmol/L Carbon Dioxide 26 (22-30) mmol/L Anion Gap 12 mmol/L BUN 12 (7-17) mg/dL Creatinine 0.55 (0.52-1.04) mg/dL Est GFR (CKD-EPI)AfAm >90 (>60 ml/min/1.73 sqM) Est GFR (CKD-EPI)NonAf >90 (>60 ml/min/1.73 sqM) Glucose 95 (74-99) mg/dL Calcium 9.4 (8.4-10.2) mg/dL Phosphorus 3.0 (2.5-4.5) mg/dL Magnesium 2.0 (1.6-2.3) mg/dL Total Bilirubin 0.6 (0.2-1.3) mg/dL AST 29 (14-36) U/L ALT 17 (4-34) U/L Alkaline Phosphatase 99 (38-126) U/L C-Reactive Protein <0.5 (<1.0) mg/dL Total Protein 7.7 (6.3-8.2) g/dL Albumin 4.9 (3.5-5.0) g/dL Disposition Clinical Impression: Cellulitis, Bilateral lower leg cellulitis Disposition: ADMITTED IP TO THIS [facility] Condition: Fair Is patient prescribed a controlled substance at d/c from ED?: No Referrals: Efrain Colorado DO [Primary Care Provider] - 1-2 days Time of Disposition: 20:30
[2022-12-22] MEDS ORDERED: ONDANSETRON 4 MG/2 ML VIAL IVP STA (18:33)
[2022-12-22 18:34] LABS: Basophils % (A) 0 %; Eosinophils # (A) 0.1 k/uL (0-0.7); Eosinophils % (A) 2 %; HCT 40.6 % (34.0-46.0); HGB 13.4 gm/dL (11.4-16.0); Lymphocytes # (A) 1.8 k/uL (1.0-4.8); Lymphocytes % (A) 23 %; MCH 33.5 pg (25.0-35.0); MCV 101.6 fL (80.0-100.0); Macrocytosis Slight; Mean Platelet Volume 7.7; Monocytes # (A) 0.4 k/uL (0-1.0); Monocytes % (A) 5 %; Neutrophils # (A) 5.1 k/uL (1.3-7.7); Neutrophils % (A) 68 %; Platelet Count 332 k/uL (150-450); RBC 3.99 m/uL (3.80-5.40); RDW 13.1 % (11.5-15.5); WBC 7.5 k/uL (3.8-10.6)
[2022-12-22 18:46] LABS: ALT 17 U/L (4-34); AST 29 U/L (14-36); African American GFR (CKD) >90 (>60 ml/min/1.73 sqM); Albumin 4.9 g/dL (3.5-5.0); Alkaline Phosphatase 99 U/L (38-126); Anion Gap 12 mmol/L; Blood Urea Nitrogen 12 mg/dL (7-17); Calcium 9.4 mg/dL (8.4-10.2); Carbon Dioxide 26 mmol/L (22-30); Chloride 101 mmol/L (98-107); Glucose 95 mg/dL (74-99); Non-African American GFR(CKD) >90 (>60 ml/min/1.73 sqM); Potassium 3.9 mmol/L (3.5-5.1); Sodium 139 mmol/L (137-145); Total Bilirubin 0.6 mg/dL (0.2-1.3); Total Protein 7.7 g/dL (6.3-8.2)
[2022-12-22 18:47] LABS: C Reactive Protein <0.5 mg/dL (<1.0)
[2022-12-22] MEDS ORDERED: NALOXONE 0.4 MG/ML 1 ML VIAL IV PRN (20:31)
[2022-12-22] MEDS ORDERED: VANCOMYCIN IV PER PHARMACY 1 EACH MISC MISCELLANE SCH (20:45)
[2022-12-22] MEDS ORDERED: VANCOMYCIN 750 MG in SODIUM CHLORIDE 0.9% 250 ML IVPB ONE (21:00)
[2022-12-22] MEDS: HYDROmorphone 0.5 MG/0.5 ML SYRINGE IVP PRN (21:20)
[2022-12-22] MEDS: ONDANSETRON 4 MG/2 ML VIAL IVP PRN (22:27)
[2022-12-22] MEDS: SODIUM CHLORIDE 0.9% 1,000 ML IV SCH (22:29)
[2022-12-22] MEDS ORDERED: ALBUTEROL NEBULIZED 2.5 MG/3 ML INHALATION PRN (23:10)
[2022-12-23] MEDS: GABAPENTIN 400 MG CAP PO SCH ×2 (00:11→20:56)
[2022-12-23] MEDS: HYDROmorphone 0.5 MG/0.5 ML SYRINGE IVP PRN ×5 (00:11→22:39)
[2022-12-23] MEDS: MELATONIN 3 MG TABLET PO SCH ×2 (00:11→20:57)
[2022-12-23] MEDS ORDERED: PROCHLORPERAZINE INJ 10 MG/2 ML VIAL IVP STA (02:00)
[2022-12-23] MEDS ORDERED: FAMOTIDINE 20 MG/2 ML VIAL IV ONE (02:02)
[2022-12-23 06:33] LABS: Basophils % (A) 0 %; Eosinophils # (A) 0.1 k/uL (0-0.7); Eosinophils % (A) 1 %; HCT 36.4 % (34.0-46.0); HGB 11.8 gm/dL (11.4-16.0); Lymphocytes # (A) 1.5 k/uL (1.0-4.8); Lymphocytes % (A) 18 %; MCH 33.7 pg (25.0-35.0); MCHC 32.5 g/dL (31.0-37.0); MCV 103.9 fL (80.0-100.0); Macrocytosis Slight; Mean Platelet Volume 7.8; Monocytes # (A) 0.3 k/uL (0-1.0); Monocytes % (A) 4 %; Neutrophils # (A) 6.3 k/uL (1.3-7.7); Neutrophils % (A) 76 %; Platelet Count 285 k/uL (150-450); WBC 8.3 k/uL (3.8-10.6)
[2022-12-23 07:00] LABS: ALT 14 U/L (4-34); AST 23 U/L (14-36); African American GFR (CKD) >90 (>60 ml/min/1.73 sqM); Albumin 3.8 g/dL (3.5-5.0); Albumin/Globulin Ratio 1.7; Alkaline Phosphatase 71 U/L (38-126); Anion Gap 11 mmol/L; Blood Urea Nitrogen 10 mg/dL (7-17); Calcium 8.4 mg/dL (8.4-10.2); Carbon Dioxide 23 mmol/L (22-30); Chloride 102 mmol/L (98-107); Globulin 2.2 g/dL; Glucose 70 mg/dL (74-99); Magnesium 1.8 mg/dL (1.6-2.3); Non-African American GFR(CKD) >90 (>60 ml/min/1.73 sqM); Phosphorus 3.6 mg/dL (2.5-4.5); Potassium 3.9 mmol/L (3.5-5.1); Sodium 136 mmol/L (137-145); Total Bilirubin 0.4 mg/dL (0.2-1.3)
[2022-12-23] MEDS: ONDANSETRON 4 MG/2 ML VIAL IVP PRN ×2 (08:44→17:42)
[2022-12-23] MEDS: SODIUM CHLORIDE 0.9% 1,000 ML IV SCH (12:06)
[2022-12-23] MEDS: VANCOMYCIN 750 MG in SODIUM CHLORIDE 0.9% 250 ML IVPB SCH (12:06)
[2022-12-23 13:21] VITALS: BMI 16.8
[2022-12-23] MEDS ORDERED: GABAPENTIN 400 MG CAP PO PRN (13:49)
[2022-12-23] MEDS: METOCLOPRAMIDE 5 MG/ML 2 ML VIAL IVP PRN ×2 (14:07→20:57)
[2022-12-24] MEDS: HYDROmorphone 0.5 MG/0.5 ML SYRINGE IVP PRN ×5 (01:43→15:30)
[2022-12-24] MEDS: ONDANSETRON 4 MG/2 ML VIAL IVP PRN ×3 (01:44→17:28)
[2022-12-24] MEDS: VANCOMYCIN 750 MG in SODIUM CHLORIDE 0.9% 250 ML IVPB SCH ×2 (03:54→20:19)
[2022-12-24] MEDS: SODIUM CHLORIDE 0.9% 1,000 ML IV SCH ×2 (03:55→15:33)
[2022-12-24] MEDS: METOCLOPRAMIDE 5 MG/ML 2 ML VIAL IVP PRN ×3 (06:29→20:27)
[2022-12-24 06:45] LABS: African American GFR (CKD) >90 (>60 ml/min/1.73 sqM); Non-African American GFR(CKD) >90 (>60 ml/min/1.73 sqM)
--- NOTE | 2022-12-24 17:03 | P.HPIM ---
History of Present Illness H&P Date: 12/23/22 Chief Complaint: Leg infection 72-year-old female to the ER today. She presents today for evaluation of leg wounds. Patient had a wound on her right leg escalante from a cat left leg from scraping against an table. Patient does have redness and scabbing to both wounds. She is mainly complaining of current pain. No fevers no other complaints. Patient denies any streaking of the wounds upper leg Blood work reveals WBC of 7.5, hemoglobin of 13.4 and platelet count of 332, sodium 139, potassium 3.9, BUN/creatinine of 12/0.55 and blood glucose of 95 Review of Systems REVIEW OF SYSTEMS: CONSTITUTIONAL: No fever, no malaise, no fatigue. HEENT: No recent visual problems or hearing problems. Denied any sore throat. CARDIOVASCULAR: No chest pain, orthopnea, PND, no palpitations, no syncope. PULMONARY: No shortness of breath, no cough, no hemoptysis. GASTROINTESTINAL: No diarrhea, no nausea, no vomiting, no abdominal pain. NEUROLOGICAL: No headaches, no weakness, no numbness. HEMATOLOGICAL: Denies any bleeding or petechiae. GENITOURINARY: Denies any burning micturition, frequency, or urgency. MUSCULOSKELETAL/RHEUMATOLOGICAL: Denies any joint pain, swelling, or any muscle pain. ENDOCRINE: Denies any polyuria or polydipsia. The rest of the 14-point review of systems is negative. Past Medical History Past Medical History: Asthma, Eye Disorder Additional Past Medical History / Comment(s): BILAT GLAUCOMA, MAC. DEGENERATION History of Any Multi-Drug Resistant Organisms: None Reported Past Surgical History: Appendectomy, Bowel Resection, Breast Surgery, Cholecystectomy, Hysterectomy, Orthopedic Surgery, Tonsillectomy Additional Past Surgical History / Comment(s): left rotator cuff x3 , nerve endings in back "burnt", COLONOSOCPY, BILAT CATARACTS REMOVED WITH LENS IMPLANT, BILAT KNEE SX, Past Anesthesia/Blood Transfusion Reactions: No Reported Reaction Past Psychological History: No Psychological Hx Reported Smoking Status: Former smoker Past Alcohol Use History: Occasional Additional Past Alcohol Use History / Comment(s): QUIT SMOKING -36 YEARS AGO Past Drug Use History: None Reported - Past Family History Father Family Medical History: Cancer Mother Family Medical History: Cancer Sister(s) Family Medical History: Cancer Additional Family Medical History / Comment(s): 2 SISTERS WITH CANCER Brother(s) Family Medical History: Cancer Additional Family Medical History / Comment(s): 2 BROTHERS WITH CANCER Daughter(s) Family Medical History: Cancer Medications and Allergies Home Medications Medication Instructions Recorded Confirmed Type Albuterol Inhaler [Ventolin Hfa 2 puff INHALATION RT-Q4H PRN 06/23/20 12/22/22 History Inhaler] Gabapentin 800 mg PO HS 06/23/20 12/22/22 History Gabapentin 800 mg PO DAILY PRN 12/18/21 12/22/22 History Acetaminophen/Diphenhydramine 1 tab PO HS PRN 12/22/22 12/22/22 History [Tylenol PM 500-25mg] Allergies Allergy/AdvReac Type Severity Reaction Status Date / Time bee venom protein (honey bee) Allergy Wheezing Verified 12/22/22 21:00 butorphanol [From Stadol] Allergy Unknown Verified 12/22/22 21:00 Penicillins Allergy Swelling Verified 12/22/22 21:00 throat prochlorperazine Allergy Unknown Verified 12/22/22 21:00 [From Compazine] aspirin AdvReac Abdominal Verified 12/22/22 21:00 Pain Physical Exam Vitals: Vital Signs Temp Pulse Pulse Resp BP BP Pulse Ox 12/23/22 08:00 86 16 12/23/22 07:30 98.3 F 86 16 161/79 98 12/23/22 03:00 179/90 12/23/22 01:12 97.8 F 88 16 198/100 96 12/22/22 22:24 97.8 F 83 16 205/93 98 12/22/22 21:30 82 17 179/94 98 12/22/22 21:19 82 17 185/94 99 12/22/22 21:00 207/111 98 12/22/22 20:30 85 18 186/92 98 12/22/22 19:38 193/99 98 12/22/22 18:37 80 18 178/97 99 12/22/22 16:59 99.3 F 79 18 178/97 99 Intake and Output 12/22/22 12/23/22 12/23/22 22:59 06:59 14:59 Intake Total 1 Balance 1 Intake: Oral 1 Other: Voiding Method Bedside Commode Weight 43.091 kg 43.091 kg 43.091 kg PHYSICAL EXAMINATION: GENERAL: The patient is alert and oriented x3, not in any acute distress. Well developed, well nourished. HEENT: Pupils are round and equally reacting to light. EOMI. No scleral icterus. No conjunctival pallor. Normocephalic, atraumatic. No pharyngeal erythema. No thyromegaly. CARDIOVASCULAR: S1 and S2 present. No murmurs, rubs, or gallops. PULMONARY: Chest is clear to auscultation, no wheezing or crackles. ABDOMEN: Soft, nontender, nondistended, normoactive bowel sounds. No palpable organomegaly. MUSCULOSKELETAL: No joint swelling or deformity. EXTREMITIES: No cyanosis, clubbing, or pedal edema. NEUROLOGICAL: Gross neurological examination did not reveal any focal deficits. SKIN: No rashes. Results CBC & Chem 7: 12/23/22 05:26 12/24/22 06:16 Labs: Abnormal Lab Results - Last 24 Hours (Table) 12/22/22 12/23/22 12/23/22 Range/Units 18:25 05:26 05:26 RBC 3.50 L (3.80-5.40) m/uL MCV 101.6 H 103.9 H (80.0-100.0) fL Sodium 136 L (137-145) mmol/L Glucose 70 L (74-99) mg/dL Total Protein 6.0 L (6.3-8.2) g/dL Thrombosis Risk Factor Assmnt - Choose All That Apply Any of the Below Risk Factors Present?: No Other Risk Factors: Yes Each Risk Factor Represents 2 Points: Age 61-74 years Other congenital or acquired thrombophilia - If yes, enter type in comment: No Thrombosis Risk Factor Assessment Total Risk Factor Score: 2 Thrombosis Risk Factor Assessment Level: Low Risk Assessment and Plan Assessment: 1. Cellulitis bilateral lower extremities related to Scratch 2. Asthma not in exacerbation; continue with home inhaler therapy 3. History of glaucoma and macular degeneration 4. Neuropathy; patient takes Neurontin 800 mg daily at bedtime and daily when necessary DVT prophylaxis; SCDs CODE STATUS; full code
--- NOTE | 2022-12-24 17:07 | P.PN ---
Subjective Progress Note Date: 12/24/22 72-year-old female to the ER today. She presents today for evaluation of leg wounds. Patient had a wound on her right leg escalante from a cat left leg from scraping against an table. Patient does have redness and scabbing to both wounds. She is mainly complaining of current pain. No fevers no other compl aints. Patient denies any streaking of the wounds upper leg Blood work reveals WBC of 7.5, hemoglobin of 13.4 and platelet count of 332, sodium 139, potassium 3.9, BUN/creatinine of 12/0.55 and blood glucose of 95 Vital signs are reviewed and remained stable and patient is afebrile temperature of 98.2; blood pressure has been elevated since admission at 189/87; patient currently not on any antihypertensive therapy; we will plan to start patient on lisinopril 5 mg daily and monitor blood pressure closely Lab review shows WBC of 8.3, hemoglobin of 11.8, platelet count of 285, sodium 136, potassium 3.8, BUN/creatinine of 11/0.5 -- Patient has been evaluated by ID and remains on IV antibiotics in form of ceftriaxone and IV vancomycin with pharmacy dosing service; we will monitor CBC, CRP and pro-calcitonin Objective - Vital Signs Vital signs: Vital Signs Temp 98.2 F 12/24/22 14:22 Pulse 90 12/24/22 14:22 Resp 14 12/24/22 14:22 BP 189/87 12/24/22 14:22 Pulse Ox 97 12/24/22 14:22 FiO2 Intake & Output 12/23/22 12/24/22 12/24/22 18:59 06:59 18:59 Intake Total 240 Balance 240 Weight 43.091 kg Intake: Oral 240 Other: Voiding Method Bedside Commode Toilet Bedside Commode # Voids 2 2 2 - Exam PHYSICAL EXAMINATION: GENERAL: The patient is alert and oriented x3, not in any acute distress. Well developed, well nourished. HEENT: Pupils are round and equally reacting to light. EOMI. No scleral icterus. No conjunctival pallor. Normocephalic, atraumatic. No pharyngeal erythema. No thyromegaly. CARDIOVASCULAR: S1 and S2 present. No murmurs, rubs, or gallops. PULMONARY: Chest is clear to auscultation, no wheezing or crackles. ABDOMEN: Soft, nontender, nondistended, normoactive bowel sounds. No palpable organomegaly. MUSCULOSKELETAL: No joint swelling or deformity. EXTREMITIES: No cyanosis, clubbing, or pedal edema. NEUROLOGICAL: Gross neurological examination did not reveal any focal deficits. SKIN: No rashes. - Labs CBC & Chem 7: 12/23/22 05:26 12/24/22 06:16 Labs: Microbiology - Last 24 Hours (Table) 12/22/22 18:25 Blood Culture - Preliminary Blood 12/22/22 18:25 Blood Culture - Preliminary Blood Assessment and Plan Assessment: 1. Cellulitis bilateral lower extremities related to [place] 2. Asthma not in exacerbation; continue with home inhaler therapy 3. History of glaucoma and macular degeneration 4. Neuropathy; patient takes Neurontin 800 mg daily at bedtime and daily when necessary DVT prophylaxis; SCDs CODE STATUS; full code
[2022-12-24] MEDS: lisinopriL 5 MG TAB PO SCH (17:28)
[2022-12-24] MEDS: KETOROLAC 15 MG/ML 1 ML VIAL IVP PRN (20:29)
[2022-12-24] MEDS: GABAPENTIN 400 MG CAP PO SCH (20:31)
[2022-12-24] MEDS: MELATONIN 3 MG TABLET PO SCH (20:31)
[2022-12-24 21:14] VITALS: RESP 16
--- NOTE | 2022-12-24 22:58 | P.CONS ---
History of Present Illness - Reason for Consult Consult date: 12/24/22 - History of Present Illness Patient is a 72-year-old female with a past medical history significant for asthma osteoarthritis history of bowel resection presenting to the hospital for evaluation of bilateral lower extremity wound patient did have a wound on the right escalante from the cat and on the left side from a rubbing against the table patient has been complaining of pain especially to the right lower extremity wound area to be more of a sharp 5-6 out of 10 no radiation with associated nausea but no vomiting patient denies high-grade fever on arrival to the ER patient was afebrile and no fever has been recorded subsequently patient did have a normal white count kidney function was normal liver enzymes are normal patient was started on Rocephin and vancomycin infectious disease was consulted for further management of antibiotic therapy Past Medical History Past Medical History: Asthma, Eye Disorder Additional Past Medical History / Comment(s): BILAT GLAUCOMA, MAC. DEGENERATION History of Any Multi-Drug Resistant Organisms: None Reported Past Surgical History: Appendectomy, Bowel Resection, Breast Surgery, Cholecystectomy, Hysterectomy, Orthopedic Surgery, Tonsillectomy Additional Past Surgical History / Comment(s): left rotator cuff x3 , nerve endings in back "burnt", COLONOSOCPY, BILAT CATARACTS REMOVED WITH LENS IMPLANT, BILAT KNEE SX, Past Anesthesia/Blood Transfusion Reactions: No Reported Reaction Past Psychological History: No Psychological Hx Reported Smoking Status: Former smoker Past Alcohol Use History: Occasional Additional Past Alcohol Use History / Comment(s): QUIT SMOKING -36 YEARS AGO Past Drug Use History: None Reported - Past Family History Father Family Medical History: Cancer Mother Family Medical History: Cancer Sister(s) Family Medical History: Cancer Additional Family Medical History / Comment(s): 2 SISTERS WITH CANCER Brother(s) Family Medical History: Cancer Additional Family Medical History / Comment(s): 2 BROTHERS WITH CANCER Daughter(s) Family Medical History: Cancer Medications and Allergies Home Medications Medication Instructions Recorded Confirmed Type Albuterol Inhaler [Ventolin Hfa 2 puff INHALATION RT-Q4H PRN 06/23/20 12/22/22 History Inhaler] Gabapentin 800 mg PO HS 06/23/20 12/22/22 History Gabapentin 800 mg PO DAILY PRN 12/18/21 12/22/22 History Acetaminophen/Diphenhydramine 1 tab PO HS PRN 12/22/22 12/22/22 History [Tylenol PM 500-25mg] Allergies Allergy/AdvReac Type Severity Reaction Status Date / Time bee venom protein (honey bee) Allergy Wheezing Verified 12/22/22 21:00 butorphanol [From Stadol] Allergy Unknown Verified 12/22/22 21:00 Penicillins Allergy Swelling Verified 12/22/22 21:00 throat prochlorperazine Allergy Unknown Verified 12/22/22 21:00 [From Compazine] aspirin AdvReac Abdominal Verified 12/22/22 21:00 Pain Physical Exam Vitals: Vital Signs Temp Pulse Resp BP Pulse Ox 12/24/22 14:22 98.2 F 90 14 189/87 97 12/24/22 14:00 87 16 12/24/22 08:00 87 16 12/24/22 07:40 98.2 F 87 16 171/87 99 12/24/22 01:34 98.1 F 102 H 15 193/92 98 12/23/22 19:23 98.3 F 98 16 178/88 98 Intake and Output 12/24/22 12/24/22 12/24/22 06:59 14:59 22:59 Other: Voiding Method Toilet Bedside Commode # Voids 2 2 Results CBC & Chem 7: 12/23/22 05:26 12/24/22 06:16 Labs: Microbiology - Last 24 Hours (Table) 12/22/22 18:25 Blood Culture - Preliminary Blood 12/22/22 18:25 Blood Culture - Preliminary Blood Assessment and Plan Plan: 1patient presented to hospital with bilateral lower extremity wound especially to the right leg as result from physician but cannot with slight area of skin necrosis and surrounding cellulitis likely from a gram-positive skin martine gram- negative infection not entirely excluded keeping in mind exposure to the cat. 2patient with a penicillin allergy that would limit the number of antibiotics safe to use. 3patient to continue with Rocephin and vancomycin with some clinical improvement. 4we will check inflammatory markers. We will follow on clinical condition and cultures to further adjust medication if needed Thank you for this consultation we will follow the patient along with you Time with Patient: Greater than 30
[2022-12-25] MEDS: HYDROmorphone 0.5 MG/0.5 ML SYRINGE IVP PRN ×2 (01:20→09:10)
[2022-12-25 03:16] VITALS: PULSE 78
[2022-12-25] MEDS: SODIUM CHLORIDE 0.9% 1,000 ML IV SCH (04:45)
[2022-12-25] MEDS: METOCLOPRAMIDE 5 MG/ML 2 ML VIAL IVP PRN (05:13)
[2022-12-25] MEDS: KETOROLAC 15 MG/ML 1 ML VIAL IVP PRN ×2 (05:13→12:53)
[2022-12-25 06:42] LABS: Basophils % (A) 0 %; Eosinophils # (A) 0.1 k/uL (0-0.7); Eosinophils % (A) 1 %; HCT 35.3 % (34.0-46.0); HGB 11.6 gm/dL (11.4-16.0); Lymphocytes # (A) 1.7 k/uL (1.0-4.8); Lymphocytes % (A) 22 %; MCH 33.6 pg (25.0-35.0); MCHC 32.7 g/dL (31.0-37.0); MCV 102.6 fL (80.0-100.0); Macrocytosis Slight; Mean Platelet Volume 7.7; Monocytes # (A) 0.7 k/uL (0-1.0); Monocytes % (A) 9 %; Neutrophils # (A) 5.3 k/uL (1.3-7.7); Neutrophils % (A) 66 %; Platelet Count 268 k/uL (150-450); RBC 3.44 m/uL (3.80-5.40); RDW 12.8 % (11.5-15.5); WBC 8.1 k/uL (3.8-10.6)
[2022-12-25 06:59] LABS: African American GFR (CKD) >90 (>60 ml/min/1.73 sqM); Anion Gap 13 mmol/L; Blood Urea Nitrogen 10 mg/dL (7-17); Carbon Dioxide 18 mmol/L (22-30); Chloride 99 mmol/L (98-107); Glucose 62 mg/dL (74-99); Non-African American GFR(CKD) 84 (>60 ml/min/1.73 sqM); Potassium 3.5 mmol/L (3.5-5.1); Sodium 130 mmol/L (137-145)
[2022-12-25 07:04] LABS: C Reactive Protein <0.5 mg/dL (<1.0)
[2022-12-25 08:28] VITALS: BP 134/75; TEMP 97.7
[2022-12-25] MEDS: lisinopriL 5 MG TAB PO SCH (09:01)
[2022-12-25] MEDS ORDERED: SODIUM CHLORIDE 0.9% 500 ML 500 ML IV SCH (09:45)
[2022-12-25] MEDS: ONDANSETRON 4 MG/2 ML VIAL IVP PRN (10:12)
[2022-12-25] MEDS ORDERED: VANCOMYCIN TROUGH DUE 1 EACH MISC MISCELLANE ONE (11:00)
[2022-12-25 11:40] LABS: African American GFR (CKD) 88 (>60 ml/min/1.73 sqM); Non-African American GFR(CKD) 76 (>60 ml/min/1.73 sqM)
[2022-12-25] MEDS: VANCOMYCIN 750 MG in SODIUM CHLORIDE 0.9% 250 ML IVPB SCH (12:30)
[2022-12-26] MEDS ORDERED: VANCOMYCIN 1,000 MG in SODIUM CHLORIDE 0.9% 250 ML IVPB SCH (04:00)
== END 2022-12-25 16:14 | disposition home or self-care (01) | DRG 603 ==
LOC: EC 16:51 → 6NMEDSUR 20:31 → OBSVTOIN 12-25 12:27
PROVIDERS: ADMIT Hospitalist; ATTEND Hospitalist
DX: L03.115 Cellulitis of right lower limb (principal); G62.9 Polyneuropathy, unspecified; L03.116 Cellulitis of left lower limb; S80.811A Abrasion, right lower leg, initial encounter; S80.812A Abrasion, left lower leg, initial encounter; J45.909 Unspecified asthma, uncomplicated; H35.30 Unspecified macular degeneration; M19.90 Unspecified osteoarthritis, unspecified site; H40.9 Unspecified glaucoma; Z79.899 Other long term (current) drug therapy; Z87.891 Personal history of nicotine dependence; Z91.030 Bee allergy status; Z88.0 Allergy status to penicillin; Z88.6 Allergy status to analgesic agent; Z88.8 Allergy status to other drugs, medicaments and biological substances; Z88.4 Allergy status to anesthetic agent; Y92.009 Unspecified place in unspecified non-institutional (private) residence as the place of occurrence of the external cause; Y92.007 Garden or yard of unspecified non-institutional (private) residence as the place of occurrence of the external cause; W55.03XA Scratched by cat, initial encounter; Y93.9 Activity, unspecified
CPT/HCPCS: 36415; 80048; 80053; 80202; 82565; 83735; 84100; 85025; 86140; 87040; 96365; 96375; 99285

== ENCOUNTER 2024-11-25 18:28 | Inpatient (IN) | payer MEDICARE ==
[2024-11-25 18:48] LABS: Basophils # (A) 0.05 10*3/uL (0.00-0.10); Basophils % (A) 0.6 %; Eosinophils # (A) 0.03 10*3/uL (0.04-0.35); Eosinophils % (A) 0.4 %; HCT 33.9 % (37.2-46.3); HGB 11.9 g/dL (12.0-15.0); Lymphocytes # (A) 1.14 10*3/uL (0.90-5.00); Lymphocytes % (A) 13.3 %; MCH 36.4 pg (27.0-32.0); MCHC 35.1 g/dL (32.0-37.0); MCV 103.7 fL (80.0-97.0); Mean Platelet Volume 10.1 fL (9.5-12.2); Monocytes # (A) 0.96 10*3/uL (0.20-1.00); Monocytes % (A) 11.2 %; Neutrophils # (A) 6.31 10*3/uL (1.80-7.70); Neutrophils % (A) 73.9 %; Platelet Count 237 10*3/uL (140-440); RBC 3.27 10*6/uL (4.10-5.20); RDW 13.3 % (11.5-14.5); WBC 8.54 10*3/uL (4.50-10.00)
[2024-11-25] MEDS: HYDROmorphone 0.5 MG/0.5 ML SYRINGE IVP STA (18:54)
[2024-11-25 18:58] LABS: INR 0.9 (<1.2); Partial Thromboplastin Time 23.6 sec (22.0-30.0); Prothrombin Time 10.3 sec (10.0-12.5)
[2024-11-25 18:59] LABS: ALT 22 U/L (4-34); African American GFR (CKD) >90 (>60 ml/min/1.73 sqM); Anion Gap 6 mmol/L; Blood Urea Nitrogen 10 mg/dL (7-17); Carbon Dioxide 24 mmol/L (22-30); Chloride 104 mmol/L (98-107); Glucose 96 mg/dL (74-99); Non-African American GFR(CKD) >90 (>60 ml/min/1.73 sqM); Sodium 134 mmol/L (137-145); Total Bilirubin 0.9 mg/dL (0.2-1.3)
[2024-11-25 19:07] LABS: Potassium 4.5 mmol/L (3.5-5.1); Total Protein 6.4 g/dL (6.3-8.2)
[2024-11-25 19:08] LABS: AST 37 U/L (14-36); Alkaline Phosphatase 65 U/L (38-126)
--- NOTE | 2024-11-25 19:23 | ED ---
General Adult HPI - General Chief complaint: Syncope Stated complaint: Fall Time Seen by Provider: 11/25/24 18:30 Source: patient, EMS, RN notes reviewed, old records reviewed Mode of arrival: EMS - History of Present Illness Initial comments: This is a 74-year-old female who presents to the emergency department stating that she must of passed out at home because she woke up on the floor with significant left hip pain as well as a little left posterior occipital pain in the head and little pain under her left breast. Patient states she does not remember falling but it did occur right where there was 1 step in her house and she thinks she might of tripped but she does not remember this. Patient denies ever experiencing any chest pain palpitations or shortness of breath. Patient states prior to the event she was feeling just fine. - Related Data Home Medications Medication Instructions Recorded Confirmed Albuterol Inhaler [Ventolin Hfa 2 puff INHALATION RT-Q4H PRN 06/23/20 12/22/22 Inhaler] Gabapentin 800 mg PO HS 06/23/20 12/22/22 Gabapentin 800 mg PO DAILY PRN 12/18/21 12/22/22 Acetaminophen/Diphenhydramine 1 tab PO HS PRN 12/22/22 12/22/22 [Tylenol PM 500-25mg] Previous Rx's Medication Instructions Recorded Omeprazole 20 mg PO 10 #10 cap 12/25/22 Ondansetron Odt [Zofran Odt] 4 mg PO Q8HR PRN #12 tab 12/25/22 cefuroxime axetiL [Cefuroxime] 500 mg PO DAILY #7 tab 12/25/22 lisinopriL [Zestril] 5 mg PO DAILY #30 tab 12/25/22 Allergies Allergy/AdvReac Type Severity Reaction Status Date / Time bee venom protein (honey bee) Allergy Wheezing Verified 11/25/24 18:33 butorphanol [From Stadol] Allergy Unknown Verified 11/25/24 18:33 Penicillins Allergy Swelling Verified 12/22/22 21:00 throat prochlorperazine Allergy Unknown Verified 11/25/24 18:33 [From Compazine] aspirin AdvReac Abdominal Verified 11/25/24 18:33 Pain Review of Systems ROS Statement: Those systems with pertinent positive or pertinent negative responses have been documented in the HPI. ROS Other: All systems not noted in ROS Statement are negative. Past Medical History Past Medical History: Asthma, Eye Disorder Additional Past Medical History / Comment(s): BILAT GLAUCOMA, MAC. DEGENERATION History of Any Multi-Drug Resistant Organisms: None Reported Past Surgical History: Appendectomy, Bowel Resection, Breast Surgery, Cholecystectomy, Hysterectomy, Orthopedic Surgery, Tonsillectomy Additional Past Surgical History / Comment(s): left rotator cuff x3 , nerve endings in back "burnt", COLONOSOCPY, BILAT CATARACTS REMOVED WITH LENS IMPLANT, BILAT KNEE SX, Past Anesthesia/Blood Transfusion Reactions: No Reported Reaction Past Psychological History: No Psychological Hx Reported Smoking Status: Former smoker Past Alcohol Use History: Occasional Past Drug Use History: None Reported - Past Family History Father Family Medical History: Cancer Mother Family Medical History: Cancer Sister(s) Family Medical History: Cancer Additional Family Medical History / Comment(s): 2 SISTERS WITH CANCER Brother(s) Family Medical History: Cancer Additional Family Medical History / Comment(s): 2 BROTHERS WITH CANCER Daughter(s) Family Medical History: Cancer General Exam - General Exam Comments Initial Comments: GENERAL: Patient is well-developed and well-nourished. Patient is nontoxic and well-hyd rated and is in mild distress. ENT: Neck is soft and supple. No significant lymphadenopathy is noted. Oropharynx is clear. Moist mucous membranes. Neck has full range of motion without eliciting any pain. EYES: The sclera were anicteric and conjunctiva were pink and moist. Extraocular movements were intact and pupils were equal round and reactive to light. Eyelids were unremarkable. PULMONARY: Unlabored respirations. Good breath sounds bilaterally. No audible rales rhonchi or wheezing was noted. CARDIOVASCULAR: There is a regular rate and rhythm without any murmurs gallops or rubs. ABDOMEN: Soft and nontender with normal bowel sounds. SKIN: Skin is clear with no lesions or rashes and otherwise unremarkable. NEUROLOGIC: Patient is alert and oriented x3. Cranial nerves II through XII are grossly intact. Motor and sensory are also intact. Normal speech, volume and content. Symmetrical smile. MUSCULOSKELETAL: Both to move the left leg at the hip secondary to the pain. There is quite a bit of lateral hip pain LYMPHATICS: No significant lymphadenopathy is noted PSYCHIATRIC: Normal psychiatric evaluation. Course Vital Signs 11/25/24 18:30 Temperature 98.7 F Pulse Rate 96 Respiratory 18 Rate Blood Pressure 147/84 O2 Sat by Pulse 95 Oximetry Medical Decision Making - Medical Decision Making EKG is interpreted by myself. EKG shows a sinus rhythm with occasional PAC at a rate of 94 bpm MS interval is 143 QRS is 72 QT interval is 351 QTc is 4 3. Patient's EKG shows no ST segment elevation or depression Was pt. sent in by a medical professional or institution (, MONE, MANUFACTURING TECHNOLOGY PROFESSOR, urgent care, hospital, or detention...) When possible be specific @ -No Did you speak to anyone other than the patient for history (EMS, parent, family, police, friend...)? What history was obtained from this source @ -No Did you review nursing and triage notes (agree or disagree)? Why? @ -I reviewed and agree with nursing and triage notes Were old charts reviewed (outside hosp., previous admission, EMS record, old EKG, old radiological studies, urgent care reports/EKG's, detention records)? Report findings @ -No old charts were reviewed Differential Diagnosis? @ -Differential Musculoskeletal Muscular strain, contusion, ligament sprain, fracture, arthritis, septic arthritis, bursitis, cellulitis, muscle spasm, nerve compression, DVT, arterial occlusion, herpes zoster, electrolyte abnormality, tumor.... This is not meant to be in all inclusive list EKG interpreted by me (3pts min.). @ -As above X-rays interpreted by me (1pt min.). @ -X-ray shows no acute abnormality, x-ray of the hip and pelvis show no acute abnormality CT interpreted by me (1pt min.). @ -None done U/S interpreted by me (1pt. min.). @ -None done What testing was considered but not performed or refused? (CT, X-rays, U/S, labs)? Why? @ -None What meds were considered but not given or refused? Why? @ -None Did you discuss the management of the patient with other professionals (professionals i.e. MONE Jimenez, MANUFACTURING TECHNOLOGY PROFESSOR, lab, RT, psych nurse, older adult social work specialist, inside barrel lathe operator, teacher, property officer, special education case manager)? Give summary @ -I spoke with Dr. Pineda he agreed admit the patient admit the patient wrote of any orders Was smoking cessation discussed for >3mins.? @ -No Was critical care preformed (if so, how long)? @ -No Were there social determinants of health that impacted care today? How? (Homelessness, low income, unemployed, alcoholism, drug addiction, transportation, low edu. Level, literacy, decrease access to med. care, fci, rehab)? @ -No Was there de-escalation of care discussed even if they declined (Discuss DNR or withdrawal of care, Hospice)? DNR status @ -No What co-morbidities impacted this encounter? (DM, HTN, Smoking, COPD, CAD, Cancer, CVA, ARF, Chemo, Hep., AIDS, mental health diagnosis, sleep apnea, morbid obesity)? @ -None Was patient admitted / discharged? Hospital course, mention meds given and route, prescriptions, significant lab abnormalities, going to OR and other pertinent info. @ -Patient was given pain medication she was able to move her left leg better but she still had quite a bit of lateral hip pain. Patient also complained of some neck pain in the trapezius muscles bilaterally but no spinous process pain Undiagnosed new problem with uncertain prognosis? @ -No Drug Therapy requiring intensive monitoring for toxicity (Heparin, Nitro, Insulin, Cardizem)? @ -No Were any procedures done? @ -No Diagnosis/symptom? @ -Cervical strain Acute, or Chronic, or Acute on Chronic? @ -Acute Uncomplicated (without systemic symptoms) or Complicated (systemic symptoms)? @ -Complicated Side effects of treatment? @ -No Exacerbation, Progression, or Severe Exacerbation? @ -No Poses a threat to life or bodily function? How? (Chest pain, USA, PA, pneumonia, PE, COPD, DKA, ARF, appy, cholecystitis, CVA, Diverticulitis, Homicidal, Suicidal, threat to staff... and all critical care pts) @ -No Diagnosis/symptom? @ -Hip pain Acute, or Chronic, or Acute on Chronic? @ -Acute Uncomplicated (without systemic symptoms) or Complicated (systemic symptoms)? @ -Uncomplicated Side effects of treatment? @ -None Exacerbation, Progression, or Severe Exacerbation] @ -No Poses a threat to life or bodily function? @ -No Diagnosis/symptom? @ -Syncope Acute, or Chronic, or Acute on Chronic? @ -Acute Uncomplicated (without systemic symptoms) or Complicated (systemic symptoms)? @ -Comp Side effects of treatment? @ -None Exacerbation, Progression, or Severe Exacerbation] @ -No Poses a threat to life or bodily function? @ -Yes this can be secondary to an arrhythmia or can cause her to fall and cause significant morbidity mortality - Lab Data Result diagrams: 11/25/24 18:43 11/25/24 18:43 Lab Results 11/25/24 11/25/24 11/25/24 Range/Units 18:43 18:43 18:43 WBC 8.54 (4.50-10.00) 10*3/uL RBC 3.27 L (4.10-5.20) 10*6/uL Hgb 11.9 L (12.0-15.0) g/dL Hct 33.9 L (37.2-46.3) % MCV 103.7 H (80.0-97.0) fL MCH 36.4 H (27.0-32.0) pg MCHC 35.1 (32.0-37.0) g/dL Plt Count 237 (140-440) 10*3/uL MPV 10.1 (9.5-12.2) fL Immature Gran % (Auto) 0.6 % Neutrophils % 73.9 % Lymphocytes % 13.3 % Monocytes % 11.2 % Eosinophils % 0.4 % Basophils % 0.6 % Immature Gran # 0.05 H (0.00-0.04) 10*3/uL Neutrophils # 6.31 (1.80-7.70) 10*3/uL Lymphocytes # 1.14 (0.90-5.00) 10*3/uL Monocytes # 0.96 (0.20-1.00) 10*3/uL Eosinophils # 0.03 L (0.04-0.35) 10*3/uL Basophils # 0.05 (0.00-0.10) 10*3/uL PT 10.3 (10.0-12.5) sec INR 0.9 (<1.2) APTT 23.6 (22.0-30.0) sec Sodium 134 L (137-145) mmol/L Potassium 4.5 (3.5-5.1) mmol/L Chloride 104 (98-107) mmol/L Carbon Dioxide 24 (22-30) mmol/L Anion Gap 6 mmol/L BUN 10 (7-17) mg/dL Creatinine 0.55 (0.52-1.04) mg/dL Est GFR (CKD-EPI)AfAm >90 (>60 ml/min/1.73 sqM) Est GFR (CKD-EPI)NonAf >90 (>60 ml/min/1.73 sqM) Glucose 96 (74-99) mg/dL Calcium 9.0 (8.4-10.2) mg/dL Magnesium 2.0 (1.6-2.3) mg/dL Total Bilirubin 0.9 (0.2-1.3) mg/dL AST 37 H (14-36) U/L ALT 22 (4-34) U/L Alkaline Phosphatase 65 (38-126) U/L Troponin I (0.000-0.034) ng/mL Total Protein 6.4 (6.3-8.2) g/dL Albumin 4.0 (3.5-5.0) g/dL 11/25/24 Range/Units 18:43 WBC (4.50-10.00) 10*3/uL RBC (4.10-5.20) 10*6/uL Hgb (12.0-15.0) g/dL Hct (37.2-46.3) % MCV (80.0-97.0) fL MCH (27.0-32.0) pg MCHC (32.0-37.0) g/dL Plt Count (140-440) 10*3/uL MPV (9.5-12.2) fL Immature Gran % (Auto) % Neutrophils % % Lymphocytes % % Monocytes % % Eosinophils % % Basophils % % Immature Gran # (0.00-0.04) 10*3/uL Neutrophils # (1.80-7.70) 10*3/uL Lymphocytes # (0.90-5.00) 10*3/uL Monocytes # (0.20-1.00) 10*3/uL Eosinophils # (0.04-0.35) 10*3/uL Basophils # (0.00-0.10) 10*3/uL PT (10.0-12.5) sec INR (<1.2) APTT (22.0-30.0) sec Sodium (137-145) mmol/L Potassium (3.5-5.1) mmol/L Chloride (98-107) mmol/L Carbon Dioxide (22-30) mmol/L Anion Gap mmol/L BUN (7-17) mg/dL Creatinine (0.52-1.04) mg/dL Est GFR (CKD-EPI)AfAm (>60 ml/min/1.73 sqM) Est GFR (CKD-EPI)NonAf (>60 ml/min/1.73 sqM) Glucose (74-99) mg/dL Calcium (8.4-10.2) mg/dL Magnesium (1.6-2.3) mg/dL Total Bilirubin (0.2-1.3) mg/dL AST (14-36) U/L ALT (4-34) U/L Alkaline Phosphatase (38-126) U/L Troponin I 0.021 (0.000-0.034) ng/mL Total Protein (6.3-8.2) g/dL Albumin (3.5-5.0) g/dL Disposition Clinical Impression: Syncope and collapse, Hip pain, Cervical strain Disposition: ADMITTED IP TO THIS HOSP Referrals: Eulogio Pineda MD [Primary Care Provider] - 1-2 days Time of Disposition: 20:37
--- NOTE | 2024-11-25 19:47 | CT ---
EXAMINATION TYPE: CT brain cspine wo con CT DLP: 1240.5 mGycm, Automated exposure control for dose reduction was used. DATE OF EXAM: 11/25/2024 7:35 PM COMPARISON: CT brain C-spine 06/23/2020. CLINICAL INDICATION:Female, 74 years old with history of Trauma; SYNCOPE FALL, pain TECHNIQUE: Brain: Multiple axial CT images of the brain were obtained without IV contrast. Cspine: Axial CT images from the skull base to the inferior aspect of T2 we obtained without intraven ous contrast. Coronal and sagittal reformatted images were also reviewed. FINDINGS: Brain: Extra-axial spaces: No abnormal extra-axial fluid collections. Ventricular system: Within normal limits Cerebral parenchyma: No acute intraparenchymal hemorrhage or mass effect. The da silva-white junction is well differentiated. Scattered hypoattenuating areas are seen within the periventricular white matte r. Cerebellum: Unremarkable. Mass effect: No evidence of midline shift. Intracranial vasculature: Atherosclerotic calcifications of the intracranial vessels. Soft tissues: Normal. Calvarium/osseous structures: No depressed skull fracture. Paranasal sinuses and mastoid air cells: The mastoid air cells are clear. Mild mucosal thickening of the left sphenoid sinus and ethmoid sinuses. Air-fluid level within the right maxillary sinus. Visualized orbits: Bilateral aphakia Cervical spine: Fracture: None. Osseous structures: Multilevel degenerative disc disease changes with endplate spurring and disc oste ophyte complex's. Vertebral alignment: Stable degenerative grade 1 anterolisthesis of C3 on C4. Spinal canal/Neural Foramina: Disc osteophyte complexes at C4-C5, C5-C6, C6-C7 with at least mild spi nal canal stenosis. Facet joint uncovertebral joint arthropathy scattered throughout the cervical spi ne with varying degrees of neural foraminal stenosis. Neck soft tissues: Prevertebral soft tissues are within normal limits. Other: The airway is patent. Right upper lobe 3 mm groundglass pulmonary nodule (series 301, image 98 ). [id number] bilateral carotid bulb calcifications. IMPRESSION: 1. No acute intracranial process. 2. Nonspecific white matter changes, likely secondary to chronic small vessel ischemic disease. 3. No evidence of cervical spine fracture. 4. Mild to moderate multilevel degenerative disc disease. 5. Paranasal sinus disease with air-fluid level within the right maxillary sinus. Correlate for acute sinusitis. 6. Right upper lobe 3 mm groundglass pulmonary nodule. According to Fleischner criteria, no follow-up is recommended. [facility], , 11/25/2024 7:45 PM
--- NOTE | 2024-11-25 20:30 | XR ---
EXAMINATION TYPE: XR chest 2V DATE OF EXAM: 11/25/2024 8:24 PM COMPARISON: Chest radiographs from 06/27/2020 TECHNIQUE: XR chest 2V Frontal and lateral views of the chest. CLINICAL INDICATION:Female, 74 years old with history of Chest Pain; FINDINGS: Lungs/Pleura: There is no evidence of pleural effusion, focal consolidation, or pneumothorax. Pulmonary vascularity: Unremarkable. Heart/mediastinum: Cardiomediastinal silhouette is unremarkable. Musculoskeletal: Multiple level degenerative disc disease changes seen throughout the spine. IMPRESSION: No acute cardiopulmonary disease/process. [facility], , 11/25/2024 8:27 PM
--- NOTE | 2024-11-25 20:31 | XR ---
EXAMINATION TYPE: XR Hip LT and AP Pelvis DATE OF EXAM: 11/25/2024 8:24 PM INDICATION: Patient age:Female; 74 years old; Reason for study: Trauma; PHH. pain COMPARISON: Bilateral hip radiograph 01/07/2021 TECHNIQUE: The left hip was examined in the frontal and lateral projections and a AP pelvis. FINDINGS: No evidence of any acute osseous pathology, joint dislocation, or soft tissue swelling. Vas cular calcifications. IMPRESSION: No acute osseous pathology. [facility], , 11/25/2024 8:29 PM
[2024-11-25] MEDS: KETOROLAC 15 MG/ML 1 ML VIAL IVP STA (20:48)
[2024-11-25] MEDS: SODIUM CHLORIDE 0.9% 1,000 ML IV ONE (20:59)
--- NOTE | 2024-11-25 21:34 | CT ---
EXAMINATION TYPE: CT hip LT wo con CT DLP: 269.4 mGycm, Automated exposure control for dose reduction was used. DATE OF EXAM: 11/25/2024 9:21 PM COMPARISON: Left hip radiograph of the same date, bilateral hip radiograph 01/07/2021 CLINICAL INDICATION:Female, 74 years old with history of left hip pain, fall; PHH, Left hip pain afte r fall TECHNIQUE: Axial images were obtained of the left hip without the use of IV contrast. Additional cor onal and sagittal reformatted images and soft tissue and bone window were obtained for review. FINDINGS: Acute comminuted minimally displaced fracture of the inferior left sacral ala. The left pro ximal femur is intact. Acute nondisplaced fracture of the left anterior acetabulum. No dislocation or sizable joint effusion. No significant soft tissue swelling. Left gluteal soft tissue calcifications . Mild degenerative changes of the pubic symphysis. Sigmoid diverticulosis without evidence for acute diverticulitis. Rectal fecaloma measuring up to 5.7 cm. Moderately distended urinary bladder. Atherosclerotic calcification of the visualized arterial v asculature. Posthysterectomy changes. IMPRESSION: 1. Acute nondisplaced fracture of the left anterior acetabulum. 2. Acute minimally displaced comminuted fracture of the inferior left sacral ala. [facility], , 11/25/2024 9:32 PM
[2024-11-26] MEDS: HYDROmorphone 0.5 MG/0.5 ML SYRINGE IVP PRN (02:10)
--- NOTE | 2024-11-26 08:30 | US ---
EXAMINATION TYPE: US carotid duplex BILAT DATE OF EXAM: 11/26/2024 COMPARISON: NONE CLINICAL INDICATION: Female, 74 years old with history of syncope; syncope Additional History: .... TECHNIQUE: Grayscale, color Doppler and spectral Doppler evaluation of the bilateral carotid systems and vertebral arteries. Indirect Doppler criteria was utilized. FINDINGS: EXAM MEASUREMENTS: RIGHT: Peak Systolic Velocity (PSV) cm/sec ----- Right CCA: 116 ----- Right ICA: 132 ----- Right ECA: 109 ICA/CCA ratio: 1.1 RIGHT: End Diastole cm/sec ----- Right CCA: 27.1 ----- Right ICA: 38.1 ----- Right ECA: 19 LEFT: Peak Systolic Velocity (PSV) cm/sec ----- Left CCA: 151 ----- Left ICA: 169 ----- Left ECA: 162 ICA/CCA ratio: 1.1 LEFT: End Diastole cm/sec ----- Left CCA: 37.1 ----- Left ICA: 49.6 ----- Left ECA: 41.5 VERTEBRALS (direction of flow): Right Vertebral: Antegrade Left Vertebral: Antegrade Rhythm: Normal ASSEMBLER ARRANGER NOTES: No significant stenosis seen Color Doppler imaging shows patency with blood flow throughout the carotid artery. Spectral waveforms are within normal limits. IMPRESSION: No hemodynamically significant internal carotid artery stenosis on either side. Criteria for Assigning % of Stenosis / Diameter reduction (Estimation based on the indirect measurements of the internal carotid artery velocities (ICA PSV). 1. Normal (no stenosis)=ICA PSV < 180 cm/s: ratio < 2.0: ICA EDV<40 cm/s. 2. Less than 50% stenosis=ICA PSV < 180 cm/s: ratio < 2.0: ICA EDV<40 cm/s. 3. 50 to 69% stenosis=ICA PSV of 180 to 230 cm/s: ration 2.0 ? 4.0: ICA EDV 40-100 cm/s. PSV 125-180 cm/sec and ICA/CCA PSV Ratio ? 2.0 is also consistent with 50-69% stenosis 4. Greater than 70% stenosis to near occlusion= ICA PSV > 230 cm/s: ratio > 4.0: ICA EDV > 100 cm/s. 5. Near occlusion= ICA PSV velocities may be low or undetectable: variable ratio and ICA EDV. 6. Total occlusion=unable to detect flow. [facility], , 11/26/2024 8:27 AM
--- NOTE | 2024-11-26 11:07 | P.CRDCN ---
History of Present Illness History of present illness: HISTORY OF PRESENTING ILLNESS This is a pleasant 74-year-old female past medical history significant for asthma, chronic pain and former nicotine dependence. 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 We have been asked to see in consultation for syncope. She states yesterday at home she was walking around doing things in the house and next thing she knows she woke up on the floor. She does not recall falling or tripping or getting dizzy or lightheaded. She denies chest pain, shortness of breath or palpitations. EKG reveals sinus rhythm with occasional PACs. Chest x-ray is negative for any acute cardiopulmonary process. CT of the brain and cervical spine are negative for any acute intracranial process, mild to moderate multilevel degenerative disc disease and right upper lobe groundglass pulmonary nodule noted. CT of the left hip indicates acute nondisplaced fracture of the left anterior acetabulum and acute minimally displaced comminuted fracture of the anterior left sacral ala. Ortho has been consulted to evaluate the patient. She takes no daily cardiac medications. Laboratory data reviewed, hemoglobin 11.9, platelets 237, sodium 134, potassium 4.5, creatinine 0.55 and troponin 0.021. REVIEW OF SYSTEMS At the time of my exam: CONSTITUTIONAL: Denies fever or chills. CARDIOVASCULAR: Denies chest pain, shortness of breath, orthopnea, PND or palpitations. RESPIRATORY: Denies cough. GASTROINTESTINAL: Denies abdominal pain, diarrhea, constipation, nausea or vomiting. MUSCULOSKELETAL: Denies myalgias. NEUROLOGIC: Denies numbness, tingling, headache or weakness. ENDOCRINE: Denies fatigue, weight change, polydipsia or polyurina. GENITOURINARY: Denies burning, hematuria or urgency with micturation. HEMATOLOGIC: Denies history of anemia or bleeding. PHYSICAL EXAMINATION Blood pressure 179/84 heart rate 95 afebrile and maintaining oxygen saturation on room air. CONSTITUTIONAL: No apparent distress. HEENT: Head is normocephalic. Pupils are equal, round. Sclerae anicteric. Mucous membranes of the mouth are moist. No JVD. No carotid bruit. CHEST EXAMINATION: Lungs are clear to auscultation. No chest wall tenderness is noted on palpation or with deep breathing. HEART EXAMINATION: Regular rate and rhythm. S1, S2 heard. No murmurs, gallops or rub. ABDOMEN: Soft, nontender. EXTREMITIES: 2+ peripheral pulses, no lower extremity edema and no calf tenderness. NEUROLOGIC EXAMINATION: Patient is awake, alert and oriented x3. ASSESSMENT Fall with possible syncope Acetabular and sacral ala fracture Hypertension PLAN Check second troponin to rule out an acute coronary event. Obtain 2D echocardiogram and Doppler study to assess cardiac structure and function. Add losartan 50 mg daily for blood pressure control. Apply youth nutritional monitor. On discharge we will send her home with a 30-day event monitor. Further recommendations to follow based upon clinical course, thank you kindly for this consultation. Nurse Practitioner note has been reviewed, I agree with a documented findings and plan of care. Patient was seen and examined. Past Medical History Past Medical History: Asthma, Eye Disorder Additional Past Medical History / Comment(s): BILAT GLAUCOMA, MAC. DEGENERATION, fall 11/2024 History of Any Multi-Drug Resistant Organisms: None Reported Past Surgical History: Appendectomy, Bowel Resection, Breast Surgery, Cholecystectomy, Hysterectomy, Orthopedic Surgery, Tonsillectomy Additional Past Surgical History / Comment(s): left rotator cuff x3 , nerve endings in back "burnt", COLONOSOCPY, BILAT CATARACTS REMOVED WITH LENS IMPLANT, BILAT KNEE SX, Past Anesthesia/Blood Transfusion Reactions: No Reported Reaction Past Psychological History: No Psychological Hx Reported Smoking Status: Former smoker Past Alcohol Use History: Occasional Additional Past Alcohol Use History / Comment(s): QUIT SMOKING -36 YEARS AGO Past Drug Use History: None Reported - Past Family History Father Family Medical History: Cancer Mother Family Medical History: Cancer Sister(s) Family Medical History: Cancer Additional Family Medical History / Comment(s): 2 SISTERS WITH CANCER Brother(s) Family Medical History: Cancer Additional Family Medical History / Comment(s): 2 BROTHERS WITH CANCER Daughter(s) Family Medical History: Cancer Medications and Allergies Home Medications Medication Instructions Recorded Confirmed Type Gabapentin 800 mg PO BID 12/18/21 11/26/24 History ALPRAZolam [Xanax] 1 mg PO DAILY PRN 11/26/24 11/26/24 History Dorzolamide-Timol 2.23%/0.68% 1 drop LEFT EYE BID 11/26/24 11/26/24 History [Cosopt] Latanoprost [Latanoprost 0.005%] 1 drop BOTH EYES HS 11/26/24 11/26/24 History Allergies Allergy/AdvReac Type Severity Reaction Status Date / Time bee venom protein (honey bee) Allergy Wheezing Verified 11/26/24 07:37 butorphanol [From Stadol] Allergy Unknown Verified 11/26/24 07:37 Penicillins Allergy Swelling Verified 11/26/24 07:37 throat prochlorperazine Allergy Unknown Verified 11/26/24 07:37 [From Compazine] aspirin AdvReac Abdominal Verified 11/26/24 07:37 Pain Physical Exam Vitals: Vital Signs Temp Pulse Pulse Pulse Resp BP BP 11/26/24 07:19 98.0 F 95 20 179/84 11/26/24 01:18 98.3 F 80 18 158/72 11/26/24 00:42 98.5 F 88 16 114/65 11/25/24 22:00 88 138/65 11/25/24 18:30 98.7 F 96 18 147/84 Pulse Ox 11/26/24 07:19 95 11/26/24 01:18 94 L 11/26/24 00:42 96 11/25/24 22:00 94 L 11/25/24 18:30 95 Intake and Output 11/25/24 11/26/24 11/26/24 22:59 06:59 14:59 Output Total 100 Balance -100 Output: Urine 100 Other: Weight 45.813 kg 45.813 kg Results 11/25/24 18:43 11/25/24 18:43 Cardiac Enzymes 11/25/24 11/25/24 Range/Units 18:43 18:43 AST 37 H (14-36) U/L Troponin I 0.021 (0.000-0.034) ng/mL Coagulation 11/25/24 Range/Units 18:43 PT 10.3 (10.0-12.5) sec APTT 23.6 (22.0-30.0) sec CBC 11/25/24 Range/Units 18:43 WBC 8.54 (4.50-10.00) 10*3/uL RBC 3.27 L (4.10-5.20) 10*6/uL Hgb 11.9 L (12.0-15.0) g/dL Hct 33.9 L (37.2-46.3) % Plt Count 237 (140-440) 10*3/uL Comprehensive Metabolic Panel 11/25/24 Range/Units 18:43 Sodium 134 L (137-145) mmol/L Potassium 4.5 (3.5-5.1) mmol/L Chloride 104 (98-107) mmol/L Carbon Dioxide 24 (22-30) mmol/L BUN 10 (7-17) mg/dL Creatinine 0.55 (0.52-1.04) mg/dL Glucose 96 (74-99) mg/dL Calcium 9.0 (8.4-10.2) mg/dL AST 37 H (14-36) U/L ALT 22 (4-34) U/L Alkaline Phosphatase 65 (38-126) U/L Total Protein 6.4 (6.3-8.2) g/dL Albumin 4.0 (3.5-5.0) g/dL Current Medications Generic Name Dose Route Start Last Admin Trade Name Freq PRN Reason Stop Dose Admin Hydromorphone HCl 0.5 mg 11/26/24 01:56 11/26/24 08:05 Hydromorphone 0.5 Mg/0.5 Ml Syringe IVP 0.5 mg Q4HR PRN Administration Pain Sodium Chloride 1,000 mls @ 50 mls/hr 11/25/24 20:38 11/25/24 20:59 Saline 0.9% IV 11/26/24 16:37 50 mls/hr .Q20H ONE Administration Intake and Output 11/25/24 11/26/24 11/26/24 22:59 06:59 14:59 Output Total 100 Balance -100 Output: Urine 100 Other: Weight 45.813 kg 45.813 kg 11/25/24 18:43 11/25/24 18:43
[2024-11-26] MEDS ORDERED: traMADol 50 MG TAB PO PRN (11:15)
--- NOTE | 2024-11-26 11:15 | P.CNOR ---
History of Present Illness - [facility] Consult date: 11/26/24 Consult reason: fracture (Left sided pelvic fracture) History of present illness: Patient is a 74-year-old female who presented to [facility] after a syncopal episode that resulted in a fall, she was brought to the ER by EMS. She underwent multiple imaging and lab test. Patient was admitted under internal medicine, multiple consults have been placed, this to include our orthopedic service for a left sided pelvic fracture. Patient was evaluated today at bedside, she had multiple family members present, she is resting comfortably no acute distress. She notes most discomfort in the left hip/pelvic region with movement. She denies any right lower extremity pain, she denies any bilateral upper extremity pain. She denies any new onset cervical, thoracic or lumbar pain. Patient denies any loss of bowel or bladder function at this time. She does have chronic sciatic type symptoms to the left lower extremity, she denies any numbness or tingling to the right lower extremity or bilateral upper extremities. Patient states that she had but was attempting to get her dog some food and some treats when the next thing she knew she was leaning over her chair on her left side with her legs on the ground, she has no recollection of it happening. Patient was unable to weight-bear after the injury due to the pain on the left side. Patient normally utilizes a cane with assistance for ambulation, she does drive. She is the primary care provider for her . Review of Systems Constitutional: Reports as per HPI Past Medical History Past Medical History: Asthma, Eye Disorder Additional Past Medical History / Comment(s): BILAT GLAUCOMA, MAC. DEGENERATION, fall 11/2024 History of Any Multi-Drug Resistant Organisms: None Reported Past Surgical History: Appendectomy, Bowel Resection, Breast Surgery, Cholecystectomy, Hysterectomy, Orthopedic Surgery, Tonsillectomy Additional Past Surgical History / Comment(s): left rotator cuff x3 , nerve endings in back "burnt", COLONOSOCPY, BILAT CATARACTS REMOVED WITH LENS IMPLANT, BILAT KNEE SX, Past Anesthesia/Blood Transfusion Reactions: No Reported Reaction Past Psychological History: No Psychological Hx Reported Smoking Status: Former smoker Past Alcohol Use History: Occasional Additional Past Alcohol Use History / Comment(s): QUIT SMOKING -36 YEARS AGO Past Drug Use History: None Reported - Past Family History Father Family Medical History: Cancer Mother Family Medical History: Cancer Sister(s) Family Medical History: Cancer Additional Family Medical History / Comment(s): 2 SISTERS WITH CANCER Brother(s) Family Medical History: Cancer Additional Family Medical History / Comment(s): 2 BROTHERS WITH CANCER Daughter(s) Family Medical History: Cancer Medications and Allergies Home Medications Medication Instructions Recorded Confirmed Type Gabapentin 800 mg PO BID 12/18/21 11/26/24 History ALPRAZolam [Xanax] 1 mg PO DAILY PRN 11/26/24 11/26/24 History Dorzolamide-Timol 2.23%/0.68% 1 drop LEFT EYE BID 11/26/24 11/26/24 History [Cosopt] Latanoprost [Latanoprost 0.005%] 1 drop BOTH EYES HS 11/26/24 11/26/24 History Allergies Allergy/AdvReac Type Severity Reaction Status Date / Time bee venom protein (honey bee) Allergy Wheezing Verified 11/26/24 07:37 butorphanol [From Stadol] Allergy Unknown Verified 11/26/24 07:37 Penicillins Allergy Swelling Verified 11/26/24 07:37 throat prochlorperazine Allergy Unknown Verified 11/26/24 07:37 [From Compazine] aspirin AdvReac Abdominal Verified 11/26/24 07:37 Pain Physical Examination Left lower extremity: No obvious open lesions or sores are visualized throughout the left hip/low back area. There are no areas of erythema or soft tissue swelling Patient demonstrates mild tenderness with palpation in the lower lumbar spine more near the sacrum. She is nontender with palpation throughout the femur, knee, lower leg, foot or ankle Patient is able to wiggle the toes with no difficulty, plantarflexion, dorsiflexion, EHL, FHL are intact. Knee extension and knee flexion are intact. Hip flexion along with internal and external rotation does reproduce discomfort. Patient has a very difficult time with straight leg raise due to pain. Patient's right lower extremity demonstrates no focal deficits, she has good range of motion and adequate strength. Calf is soft, no tenderness with palpation. Anterior posterior compartments of the upper and lower leg are soft and compressible Sensory exam to light touch is intact throughout the extremity, dorsalis pedis pulses 2+ Results - Labs Labs: Abnormal Lab Results - Last 24 Hours (Table) 11/25/24 11/25/24 Range/Units 18:43 18:43 RBC 3.27 L (4.10-5.20) 10*6/uL Hgb 11.9 L (12.0-15.0) g/dL Hct 33.9 L (37.2-46.3) % MCV 103.7 H (80.0-97.0) fL MCH 36.4 H (27.0-32.0) pg Immature Gran # 0.05 H (0.00-0.04) 10*3/uL Eosinophils # 0.03 L (0.04-0.35) 10*3/uL Sodium 134 L (137-145) mmol/L AST 37 H (14-36) U/L H & H 11/25/24 Range/Units 18:43 Hgb 11.9 L (12.0-15.0) g/dL Hct 33.9 L (37.2-46.3) % Coagulation 11/25/24 Range/Units 18:43 INR 0.9 (<1.2) Result Diagrams: 11/25/24 18:43 11/25/24 18:43 - Diagnostic results Hip x-ray: report reviewed, image reviewed Hip CT: report reviewed, image reviewed Assessment and Plan Assessment: Left-sided lateral compression injury Minimally displaced left anterior acetabular fracture Minimally displaced left sacral alar fracture Syncopal episode resulting in fall Other medical comorbidities Plan: I was able to discuss the case, this to include physical exam findings and imaging studies my attending Dr. Figueroa, no emergent orthopedic surgical intervention is recommended Discussed with the patient and family conservative measures, this to include PT/OT evaluation, the use of toe-touch weightbearing with a walker, low-dose muscle relaxer versus pain medication Recommending subacute rehab for this patient, she is the primary caregiver for her , at this time she would be unable to do this. They mention that her is being discharged back tomorrow with subacute rehab. I explained to the patient and family that I would discuss with case management for the possibility of them to be placed in same facility. GI DVT prophylaxis per primary medical service Other medical specialty recommendations appreciated Toe-touch weightbearing with walker Encourage incentive spirometer Will continue to follow during hospital stay Time with Patient: Less than 30
[2024-11-26] MEDS ORDERED: ACETAMINOPHEN TAB 325 MG TAB PO PRN (11:16)
[2024-11-26] MEDS: HYDROcodone/APAP 5-325MG 1 EACH TAB PO PRN (11:31)
[2024-11-26] MEDS: LOSARTAN 50 MG TAB PO SCH (11:32)
[2024-11-26 17:04] VITALS: BMI 18.4
--- NOTE | 2024-11-26 17:30 | P.HPIM ---
History of Present Illness H&P Date: 11/26/24 Ban Armando, is a 74-year-old female who presented to [facility] emergency room after having a syncopal episode and sustaining a fall with multiple trauma including head trauma. Patient stated that she was not clear about the circumstances of this episode, she stated that she woke up on the floor and was not able to stand up, EMS were called and patient was brought into emergency room. She was evaluated in the emergency room vital examination on presentation revealed a temperature of 98.7 pulse 96 respiration 18 blood pressure 147/84 pulse ox 95% on room air Laboratory data revealed a white blood count of 8.5 hemoglobin 11.9 platelet count 237 BUN 10 creatinine 0.55 Testing in the emergency room revealed CT scan of the brain revealed no acute intracranial process, CT scan of the left hip revealed acute fracture of the left anterior acetabulum and acute minimally displaced comminuted fracture of the left inferior sacral ala Patient was admitted to medical floor for further evaluation and treatment Past Medical History Past Medical History: Asthma, Eye Disorder Additional Past Medical History / Comment(s): BILAT GLAUCOMA, MAC. DEGENERATION, fall 11/2024 History of Any Multi-Drug Resistant Organisms: None Reported Past Surgical History: Appendectomy, Bowel Resection, Breast Surgery, Cholecystectomy, Hysterectomy, Orthopedic Surgery, Tonsillectomy Additional Past Surgical History / Comment(s): left rotator cuff x3 , nerve endings in back "burnt", COLONOSOCPY, BILAT CATARACTS REMOVED WITH LENS IMPLANT, BILAT KNEE SX, Past Anesthesia/Blood Transfusion Reactions: No Reported Reaction Past Psychological History: No Psychological Hx Reported Smoking Status: Former smoker Past Alcohol Use History: Occasional Additional Past Alcohol Use History / Comment(s): QUIT SMOKING -36 YEARS AGO Past Drug Use History: None Reported - Past Family History Father Family Medical History: Cancer Mother Family Medical History: Cancer Sister(s) Family Medical History: Cancer Additional Family Medical History / Comment(s): 2 SISTERS WITH CANCER Brother(s) Family Medical History: Cancer Additional Family Medical History / Comment(s): 2 BROTHERS WITH CANCER Daughter(s) Family Medical History: Cancer Medications and Allergies Home Medications Medication Instructions Recorded Confirmed Type Gabapentin 800 mg PO BID 12/18/21 11/26/24 History ALPRAZolam [Xanax] 1 mg PO DAILY PRN 05/14/25 05/14/25 History Dorzolamide-Timol 2.23%/0.68% 1 drop LEFT EYE BID 11/26/24 11/26/24 History [Cosopt] Latanoprost [Latanoprost 0.005%] 1 drop BOTH EYES HS 11/26/24 11/26/24 History Allergies Allergy/AdvReac Type Severity Reaction Status Date / Time bee venom protein (honey bee) Allergy Wheezing Verified 11/26/24 07:37 butorphanol [From Stadol] Allergy Unknown Verified 11/26/24 07:37 Penicillins Allergy Swelling Verified 11/26/24 07:37 throat prochlorperazine Allergy Unknown Verified 11/26/24 07:37 [From Compazine] aspirin AdvReac Abdominal Verified 11/26/24 07:37 Pain Physical Exam Vitals: Vital Signs Temp Pulse Pulse Resp BP BP Pulse Ox 11/26/24 01:18 98.3 F 80 18 158/72 94 L 11/26/24 00:42 98.5 F 88 16 114/65 96 11/25/24 22:00 88 138/65 94 L 11/25/24 18:30 98.7 F 96 18 147/84 95 Intake and Output 11/25/24 11/26/24 11/26/24 22:59 06:59 14:59 Output Total 100 Balance -100 Output: Urine 100 Other: Weight 45.813 kg 45.813 kg In general patient is alert and oriented x 3 in no distress HEENT head normocephalic and atraumatic Neck is supple no JVD no goiter no lymphadenopathy no carotid bruit Chest examination is clear to auscultation no crackles no wheezing Cardiac exam reveals regular heart sounds S1 and S2 no gallops no murmurs Abdomen is soft nontender no organomegaly with normal bowel sounds Extremity exam reveals no edema no cyanosis or clubbing Neurological examination reveals no gross focal deficits Results CBC & Chem 7: 11/25/24 18:43 11/25/24 18:43 Labs: Abnormal Lab Results - Last 24 Hours (Table) 11/25/24 11/25/24 Range/Units 18:43 18:43 RBC 3.27 L (4.10-5.20) 10*6/uL Hgb 11.9 L (12.0-15.0) g/dL Hct 33.9 L (37.2-46.3) % MCV 103.7 H (80.0-97.0) fL MCH 36.4 H (27.0-32.0) pg Immature Gran # 0.05 H (0.00-0.04) 10*3/uL Eosinophils # 0.03 L (0.04-0.35) 10*3/uL Sodium 134 L (137-145) mmol/L AST 37 H (14-36) U/L Thrombosis Risk Factor Assmnt - Choose All That Apply Each Factor Represents 1 point: Medical pt on bed rest, Serious lung disease incl. pneumonia (< 1month) Each Risk Factor Represents 3 Points: Age 75 years or older Each Risk Factor Represents 5 Points: Hip, pelvis, or leg fracture (< 1 month) Thrombosis Risk Factor Assessment Total Risk Factor Score: 10 Thrombosis Risk Factor Assessment Level: High Risk Assessment and Plan Plan: Syncopal episode Fall with head trauma Acute nondisplaced fracture of the left anterior acetabulum Acute minimally displaced comminuted fracture of the inferior left sacral ala Underlying history of hypertension At this time patient was seen and examined Home medications reviewed and reordered Echocardiogram and carotid Doppler ordered Cardiology and orthopedic surgery consultation requested Will add neurology consultation to rule out any evidence of seizures Will follow closely
--- NOTE | 2024-11-27 08:00 | CA ---
Transthoracic Echo Report Name: Ban Armando Age: 74 Gender: F : 1950 Exam Date: 11/26/2024 14:58 Exam Location: [place] Echo Ht (in): 62 Wt (lb): 101 Ordering Physician: Eulogio Pineda MD Attending/Referring Phys: Guest Advisor Ying Huddleston RDCS Procedure CPT: Indications: Syncope Cardiac Hx: Technical Quality: Fair Contrast 1: Total Dose (mL): Contrast 2: Total Dose (mL): MEASUREMENTS (Male / Female) Normal Values 2D ECHO LV Diastolic Diameter PLAX 4.1 cm 4.2 - 5.9 / 3.9 - 5.3 cm LV Systolic Diameter PLAX 2.4 cm IVS Diastolic Thickness 0.9 cm 0.6 - 1.0 / 0.6 - 0.9 cm LVPW Diastolic Thickness 0.9 cm 0.6 - 1.0 / 0.6 - 0.9 cm LV Relative Wall Thickness 0.4 RV Internal Dim ED PLAX 1.6 cm LVOT Diameter 1.8 cm LA Systolic Diameter LX 3.8 cm 3.0 - 4.0 / 2.7 - 3.8 cm LV Diastolic Volume MOD BP 33.5 cm??? 67 - 155 / 56 - 104 cm??? LV Systolic Volume MOD BP 10.7 cm??? - 58 / 19 - 49 cm??? LV Ejection Fraction MOD BP 68.0 % >= 55 % LV Cardiac Index MOD BP 1228.9 cm???/min???m??? LV Diastolic Volume MOD 4C 35.3 cm??? LV Systolic Volume MOD 4C 11.9 cm??? LV Ejection Fraction MOD 4C 66.4 % LV Cardiac Index MOD 4C 1263.1 cm???/min???m??? LV Diastolic Length 4C 6.2 cm LV Systolic Length 4C 5.1 cm LV Diastolic Volume MOD 2C 28.2 cm??? LV Systolic Volume MOD 2C 9.5 cm??? LV Ejection Fraction MOD 2C 66.5 % LV Cardiac Index MOD 2C 1009.9 cm???/min???m??? LV Diastolic Length 2C 5.4 cm LV Systolic Length 2C 5.0 cm LA Volume 24.0 cm??? 18 - 58 / 22 - 52 cm??? LA Volume Index 17.0 cm???/m??? 16 - 28 cm???/m??? M-MODE Aortic Root Diameter MM 3.1 cm LA Systolic Diameter MM 3.3 cm LA Ao Ratio MM 1.1 AV Cusp Separation MM 1.4 cm DOPPLER AV Peak Velocity 134.7 cm/s AV Peak Gradient 7.3 mmHg LVOT Peak Velocity 109.1 cm/s LVOT Peak Gradient 4.8 mmHg LVOT Velocity Time Integral 22.3 cm LVOT Stroke Volume 54.6 cm??? LVOT Stroke Volume Index 38.2 ml/m??? LVOT Cardiac Index 2944.2 cm???/min???m??? AV Area Cont Eq pk 2.0 cm??? MV Area PHT 3.0 cm??? Mitral E Point Velocity 67.3 cm/s Mitral A Point Velocity 100.4 cm/s Mitral E to A Ratio 0.7 MV Deceleration Time 254.1 ms FINDINGS Left Ventricle Left ventricular ejection fraction is estimated at 55-60%. Normal left ventricular systolic function with no obvious regional wall motion abnormalities. Left ventricular cavity size normal. Left ventricular wall thickness normal. Right Ventricle Normal right ventricular size and function. Right Atrium Normal right atrial size. Left Atrium Normal left atrial size. Mitral Valve Structurally normal mitral valve. Trace to mild mitral regurgitation. No mitral stenosis. Aortic Valve Trileaflet aortic valve. No aortic stenosis. Trace aortic regurgitation. Diffuse thickening (sclerosis) of the aortic valve cusps without reduced excursion. Tricuspid Valve Structurally normal tricuspid valve. Trace to mild tricuspid regurgitation. No tricuspid stenosis. Pulmonic Valve Structurally normal pulmonic valve. Trace pulmonic regurgitation. No pulmonic stenosis. Pericardium No pericardial or pleural effusion. Aorta Normal size aortic root and proximal ascending aorta. CONCLUSIONS Normal LV size and systolic function. Minimal mitral and tricuspid regurgitation. Aortic valve sclerosis and but no restriction or stenosis. No pericardial effusion. Right-sided pressures are not well quantified Previewed by: Dr. Too West MD (Electronically Signed) Final Date: 27 Nov 2024 08:00
[2024-11-27] MEDS: METOPROLOL SUCCINATE (ER) 25 MG TAB.ER.24H PO SCH (08:36)
--- NOTE | 2024-11-27 09:26 | P.PN ---
Subjective Progress Note Date: 11/27/24 Ban Armando, is a 74-year-old female who presented to [facility] emergency room after having a syncopal episode and sustaining a fall with multiple trauma including head trauma. Patient stated that she was not clear about the circumstances of this episode, she stated that she woke up on the floor and was not able to stand up, EMS were called and patient was brought into emergency room. She was evaluated in the emergency room vital examination on presentation revealed a temperature of 98.7 pulse 96 respiration 18 blood pressure 147/84 pulse ox 95% on room air Laboratory data revealed a white blood count of 8.5 hemoglobin 11.9 platelet count 237 BUN 10 creatinine 0.55 Testing in the emergency room revealed CT scan of the brain revealed no acute intracranial process, CT scan of the left hip revealed acute fracture of the left anterior acetabulum and acute minimally displaced comminuted fracture of the left inferior sacral ala Patient was admitted to medical floor for further evaluation and treatment On 11/27/2024 patient is alert and oriented x 3. Patient currently resting in bed. Patient was evaluated Ortho services we will continue conservative management at this time discharge planning to [facility]. Awaiting neurology input. Current vital signs temp 98.3, heart rate 78, respiratory rate 16, blood pressure 149/81 with pulse ox of 96% on room air. Per cardiology patient will need event monitor at discharge Objective - Vital Signs Vital signs: Vital Signs Temp 98.3 F 11/27/24 07:55 Pulse 78 11/27/24 07:55 Resp 16 11/27/24 07:55 BP 149/81 11/27/24 07:55 Pulse Ox 96 11/27/24 07:55 FiO2 Intake & Output 11/26/24 11/27/24 11/27/24 18:59 06:59 18:59 Intake Total 1440 Balance 1440 Weight 45.813 kg Intake: Oral 1440 Other: Voiding Method External Catheter Bedside Commode Bedside Commode # Voids 3 2 - Exam In general patient is alert and oriented x 3 in no distress HEENT head normocephalic and atraumatic Neck is supple no JVD no goiter no lymphadenopathy no carotid bruit Chest examination is clear to auscultation no crackles no wheezing Cardiac exam reveals regular heart sounds S1 and S2 no gallops no murmurs Abdomen is soft nontender no organomegaly with normal bowel sounds Extremity exam reveals no edema no cyanosis or clubbing Neurological examination reveals no gross focal deficits - Labs CBC & Chem 7: 11/25/24 18:43 11/25/24 18:43 Assessment and Plan Plan: Syncopal episode Fall with head trauma Acute nondisplaced fracture of the left anterior acetabulum Acute minimally displaced comminuted fracture of the inferior left sacral ala Underlying history of hypertension At this time patient was seen and examined Home medications reviewed and reordered Echocardiogram and carotid Doppler ordered Cardiology and orthopedic surgery consultation requested Will add neurology consultation to rule out any evidence of seizures Will follow closely
--- NOTE | 2024-11-27 10:14 | P.PN ---
Subjective Progress Note Date: 11/27/24 Principal diagnosis: HPI: This lady had a mechanical fall with fractures. She is being considered as a transfer to a [facility] facility. The fall seems somewhat unclear probably mechanical but patient cannot remember therefore I recommended a telemetry. On review of the wick and base assembler no evidence of any tacky or bradycardia arrhythmia. Her echo revealed good systolic function. She can be transferred to a [facility] facility but I would recommend at least a 2-week event monitor which has been ordered. I explained this to the patient she is doing well no chest pain or shortness of breath I added a small dose of metoprolol succinate 12.5 mg twice daily BP control is acceptable same medical regimen can be discharged we will come back and see her as needed. PHYSICIAL EXAM: Vitals are stable S1-S2 heard normally short systolic murmur lungs are clear abdomen is soft lower extremities reveal diminished pulses Central nervous system normal no focal deficit. IMPRESSION: 1. History of mechanical fall cannot rule out syncope. 2. Borderline hypertension. 3.. 4.. 5.. RECOMMENDATIONS: Telemetry reviewed no evidence of any significant arrhythmia. Can go to [facility] facility on a event monitor for at least 2 to 4 weeks. Echo revealed good systolic function added small dose of beta-bertin will come back and see patient as needed. Objective - Vital Signs Vital signs: Vital Signs Temp 98.3 F 11/27/24 07:55 Pulse 78 11/27/24 07:55 Resp 16 11/27/24 07:55 BP 149/81 11/27/24 07:55 Pulse Ox 96 11/27/24 07:55 FiO2 Intake & Output 11/26/24 11/27/24 11/27/24 18:59 06:59 18:59 Intake Total 1440 Balance 1440 Weight 45.813 kg Intake: Oral 1440 Other: Voiding Method External Catheter Bedside Commode Bedside Commode # Voids 3 2 - Labs CBC & Chem 7: 11/25/24 18:43 11/25/24 18:43
[2024-11-27 10:17] LABS: Basophils # (A) 0.04 X 10*3/uL (0.00-0.10); Basophils % (A) 0.5 %; Eosinophils # (A) 0.13 X 10*3/uL (0.04-0.35); Eosinophils % (A) 1.8 %; HCT 34.4 % (37.2-46.3); HGB 11.4 g/dL (12.0-15.0); Lymphocytes # (A) 0.95 X 10*3/uL (0.90-5.00); MCH 34.9 pg (27.0-32.0); MCHC 33.1 g/dL (32.0-37.0); MCV 105.2 FL (80.0-97.0); Mean Platelet Volume 10.1 FL (9.5-12.2); Monocytes # (A) 0.93 X 10*3/uL (0.20-1.00); Monocytes % (A) 12.7 %; NRBC Per 100 WBC 0 X 10*3/uL (0.00-0.01); Neutrophils # (A) 5.22 X 10*3/uL (1.80-7.70); Neutrophils % (A) 71.6 %; Platelet Count 229 X 10*3/uL (140-440); RBC 3.27 X 10*6/uL (4.10-5.20); RDW 13.1 % (11.5-14.5)
[2024-11-27 10:27] LABS: ALT 14 U/L (8-44); AST 20 U/L (13-35); Albumin 3.6 g/dL (3.8-4.9); Alkaline Phosphatase 66 U/L (41-126); BUN/Creat Ratio 17.25 Ratio (12.00-20.00); Blood Urea Nitrogen 6.9 mg/dL (9.0-27.0); Calcium 8.7 mg/dL (8.7-10.3); Carbon Dioxide 25.3 mmol/L (21.6-31.8); Chloride 101 mmol/L (96-109); Globulin 1.8 g/dL (1.6-3.3); Glucose 114 mg/dL (70-110); Potassium 4.1 mmol/L (3.5-5.5); Sodium 136 mmol/L (135-145); Total Bilirubin 0.5 mg/dL (0.3-1.2); Total Protein 5.4 g/dL (6.2-8.2)
[2024-11-27] MEDS: ONDANSETRON 4 MG/2 ML VIAL IVP PRN (13:02)
--- NOTE | 2024-11-28 07:19 | P.CNNES ---
History of Present Illness Consult date: 11/27/24 Requesting physician: Eulogio Pineda Reason for Consult: Syncope History of Present Illness: Patient is a 74-year-old right-handed female came to the hospital by ambulance 2 days ago at 6:28 PM for syncopal spell. Patient states that she was in her kitchen with her dog going to the living room, when without any warning she passed out, and when she woke up, she was laying longterm on the couch and coffee on the floor and she could not move her hip as it was hurting really bad. She does not know how she fell and how long she was out for. She did not have any dizziness or lightheadedness prior. Nothing unusual prior to the syncope. She did not bite her tongue or lost control of urine. Patient states however that for the last 2 days she has been throwing up whatever she eats, it comes out. At present while I was examining, patient had at least 3 bouts of vomiting, only green biliary stuff. Denies any abdominal pain. She has not had any bowel movement since she has been here for last 2 days. No diarrhea. Patient states that she has never passed out before. She has diagnosed with fractured left hip. As per EMS flowsheet, when they arrived, patient was in care of her son. Patient states she let the dog out and was going back to her recliner when she "woke up" longterm on the couch and on the floor. Patient states she cannot recall what happened to her or recall how long she was on the floor for. Patient complaining of left leg pain and slight neck pain. Patient has a swollen left hip with several small bruises on the hip. No external or internal rotation noted. GCS was 15. Patient denies dizziness chest pain. Vital signs at the scene was blood pressure 178/91, pulse rate 98 respiration 18 saturation 96%, blood sugar 108. Blood tests shows normal WBC hemoglobin 11.9, platelets are normal. PT PTT normal, CMP normal. CT head showed no acute intracranial process. Nonspecific white matter changes, likely secondary to chronic small vessel ischemic disease. CT of the cervical spine showed no evidence of cervical spine fracture. Mild to moderate multilevel degenerative disc disease. Paranasal sinus disease with air-fluid level within the right maxillary sinus. Correlate for acute sinusitis. Right upper lobe 3 mm groundglass pulmonary nodule. EKG showed sinu s rhythm. Chest x-ray showed no acute cardiac process. X-ray of the hip pelvis revealed no acute osseous pathology. CT of the hip showed acute nondisplaced fracture of the left anterior acetabulum. Acute minimally displaced comminuted fracture of the left inferior sacral ala. Orthopedic surgery has seen the patient diagnosed with minimally displaced left anterior acetabular fracture. Minimally displaced left sacral alar fracture. No emergent orthopedic surgical intervention recommended. They're recommending conservative measures to include PT OT. No gross muscle relaxer versus pain me dication. Subacute rehabilitation. Patient does not take any antiplatelet medication or blood thinners at home. She takes gabapentin 800 mg twice a day, Xanax 1 mg daily when necessary and some eyedrops. Review of Systems All pertinent positive and negative review of systems mentioned in the HPI, otherwise unremarkable. Past Medical History Past Medical History: Asthma, Eye Disorder Additional Past Medical History / Comment(s): BILAT GLAUCOMA, MAC. DEGENERATION, fall 11/2024 History of Any Multi-Drug Resistant Organisms: None Reported Past Surgical History: Appendectomy, Bowel Resection, Breast Surgery, Cholecystectomy, Hysterectomy, Orthopedic Surgery, Tonsillectomy Additional Past Surgical History / Comment(s): left rotator cuff x3 , nerve endings in back "burnt", COLONOSOCPY, BILAT CATARACTS REMOVED WITH LENS IMPLANT, BILAT KNEE SX, Past Anesthesia/Blood Transfusion Reactions: No Reported Reaction Past Psychological History: No Psychological Hx Reported Smoking Status: Former smoker Past Alcohol Use History: Occasional Additional Past Alcohol Use History / Comment(s): QUIT SMOKING -36 YEARS AGO Past Drug Use History: None Reported - Past Family History Father Family Medical History: Cancer Mother Family Medical History: Cancer Sister(s) Family Medical History: Cancer Additional Family Medical History / Comment(s): 2 SISTERS WITH CANCER Brother(s) Family Medical History: Cancer Additional Family Medical History / Comment(s): 2 BROTHERS WITH CANCER Daughter(s) Family Medical History: Cancer Medications and Allergies Home Medications Medication Instructions Recorded Confirmed Type Gabapentin 800 mg PO BID 12/18/21 11/26/24 History ALPRAZolam [Xanax] 1 mg PO DAILY PRN 11/26/24 11/26/24 History Dorzolamide-Timol 2.23%/0.68% 1 drop LEFT EYE BID 11/26/24 11/26/24 History [Cosopt] Latanoprost [Latanoprost 0.005%] 1 drop BOTH EYES HS 11/26/24 11/26/24 History Allergies Allergy/AdvReac Type Severity Reaction Status Date / Time bee venom protein (honey bee) Allergy Wheezing Verified 11/26/24 07:37 butorphanol [From Stadol] Allergy Unknown Verified 11/26/24 07:37 Penicillins Allergy Swelling Verified 11/26/24 07:37 throat prochlorperazine Allergy Unknown Verified 11/26/24 07:37 [From Compazine] aspirin AdvReac Abdominal Verified 11/26/24 07:37 Pain Physical Examination - Vital Signs Vital Signs: Vital Signs Temp Pulse Resp BP BP Pulse Ox 11/27/24 13:07 98.5 F 78 19 188/94 98 11/27/24 07:55 98.3 F 78 16 149/81 96 11/27/24 05:23 89 24 170/90 97 11/27/24 01:41 98.6 F 86 16 156/83 95 11/26/24 19:41 98.4 F 93 16 135/77 95 Intake and Output 11/27/24 11/27/24 11/27/24 06:59 14:59 22:59 Other: Voiding Method Bedside Commode # Voids 2 Patient is an elderly female, very pleasant, in no acute distress. Patient is frequently vomiting, biliary green material. Denies any abdominal pain. Patient is alert awake oriented to time place and person. Patient knows it is November 2024 and that she is in [facility] in [facility]. Speech and language functions are normal. Patient can name and repeat very well. No aphasia or dysarthria. Attention, concentration and fund of knowledge is adequate. On cranial nerve examination, pupils are equal, round and reacting to light, visual victoria are full on confrontation, with no neglect on double simultaneous stimulation. Extraocular muscles are intact with no nystagmus. Face is symmetric, tongue protrudes to the midline. Palatal elevation and sensation normal, hearing and shoulder shrug normal, facial sensation normal. On muscle strength testing, there is mild left pronation and minimal drift. Her strength is (right/left) biceps 5/5-4+, triceps 5/5-4+, corporate paralegal 5/5-, ankle dorsiflexion 5/3. Hip flexion not checked. Patient does have significant guarding with checking of the left upper extremity because of axillary pain. Deep tendon reflexes are symmetric biceps 2, brachioradialis 2, knees 2. Plantars are withdrawal bilaterally. Sensory to touch is equal with no neglect on double simultaneous stimulation. Cerebellar function showed no ataxia for [id number] testing. No dysdiadochokinesia. No ataxia for [id number] testing on right leg, not checked with the left leg. Tone and bulk of muscles normal. Gait deferred.. On general examination, there is no carotid bruit or murmur, S1-S2 audible. Chest is clear on consultation. Abdomen is soft nontender. No organomegaly, bowel sounds present. Peripheral pulses are present. No peripheral edema. Results - Laboratory Findings CBC and BMP: 11/27/24 05:58 11/27/24 05:58 Abnormal Lab Findings: Abnormal Labs 11/25/24 11/25/24 11/27/24 18:43 18:43 05:58 RBC 3.27 L 3.27 L Hgb 11.9 L 11.4 L Hct 33.9 L 34.4 L MCV 103.7 H 105.2 H MCH 36.4 H 34.9 H Immature Gran # 0.05 H Eosinophils # 0.03 L Sodium 134 L BUN Creatinine Glucose AST 37 H Total Protein Albumin 11/27/24 05:58 RBC Hgb Hct MCV MCH Immature Gran # Eosinophils # Sodium BUN 6.9 L Creatinine 0.4 L Glucose 114 H AST Total Protein 5.4 L Albumin 3.6 L Assessment and Plan Assessment: * Syncopal spell, unclear cause. Perhaps vasovagal/orthostatic because patient has been vomiting for about 2 days prior. * Frequent vomiting, unclear cause. Patient denies any abdominal pain. * Left hip acetabular fracture * Mild left-sided weakness, rule out CVA. * History of left rotator cuff surgery Plan: * Patient will undergo MRI of the brain, rule out CVA. * Carotid Doppler revealed no hemodynamically significant ICA stenosis on either side. Antegrade flow in both vertebral arteries. * 2-D echo revealed normal LV size and systolic function. EF is 50 reps 60%. No obvious regional wall motion abnormalities. Normal left and right atrial size. Aortic valve sclerosis but without restriction or stenosis. * Hemoglobin A1c 5.3 on 10/29/2024 * Lipid panel with cholesterol 206, LDL 92, HDL 87 and triglycerides 131. * TSH normal. * EEG rule out epileptiform activity. * B12, folate. * IM to address cause of frequent vomiting. * Start aspirin 81 mg daily. * Discussed with patient's son in detail. * Neurology will follow. Thank you for the consult.
[2024-11-28] MEDS: ASPIRIN 81 MG PO SCH (08:07)
[2024-11-28 08:45] LABS: Basophils # (A) 0.03 X 10*3/uL (0.00-0.10); Basophils % (A) 0.4 %; Eosinophils # (A) 0.14 X 10*3/uL (0.04-0.35); HCT 35.2 % (37.2-46.3); HGB 11.8 g/dL (12.0-15.0); Lymphocytes # (A) 1.16 X 10*3/uL (0.90-5.00); Lymphocytes % (A) 16.6 %; MCH 34.8 pg (27.0-32.0); MCHC 33.5 g/dL (32.0-37.0); MCV 103.8 FL (80.0-97.0); Mean Platelet Volume 10.5 FL (9.5-12.2); Monocytes # (A) 0.89 X 10*3/uL (0.20-1.00); Monocytes % (A) 12.7 %; NRBC Per 100 WBC 0 X 10*3/uL (0.00-0.01); Neutrophils # (A) 4.75 X 10*3/uL (1.80-7.70); Neutrophils % (A) 67.9 %; Platelet Count 261 X 10*3/uL (140-440); RBC 3.39 X 10*6/uL (4.10-5.20)
--- NOTE | 2024-11-28 09:14 | P.PN ---
Subjective Progress Note Date: 11/28/24 Ban Armando, is a 74-year-old female who presented to [facility] emergency room after having a syncopal episode and sustaining a fall with multiple trauma including head trauma. Patient stated that she was not clear about the circumstances of this episode, she stated that she woke up on the floor and was not able to stand up, EMS were called and patient was brought into emergency room. She was evaluated in the emergency room vital examination on presentation revealed a temperature of 98.7 pulse 96 respiration 18 blood pressure 147/84 pulse ox 95% on room air Laboratory data revealed a white blood count of 8.5 hemoglobin 11.9 platelet count 237 BUN 10 creatinine 0.55 Testing in the emergency room revealed CT scan of the brain revealed no acute intracranial process, CT scan of the left hip revealed acute fracture of the left anterior acetabulum and acute minimally displaced comminuted fracture of the left inferior sacral ala Patient was admitted to medical floor for further evaluation and treatment On 11/27/2024 patient is alert and oriented x 3. Patient currently resting in bed. Patient was evaluated Ortho services we will continue conservative management at this time discharge planning to [facility]. Awaiting neurology input. Current vital signs temp 98.3, heart rate 78, respiratory rate 16, blood pressure 149/81 with pulse ox of 96% on room air. Per cardiology patient will need event monitor at discharge On 11/28/2024 patient is alert and oriented x 3. Neurology services following MRI and EEG has been ordered. Event monitor at bedside. Patient still comp laining that she has been having some nausea and vomiting will order amylase and lipase levels. Patient denies chest pain. Patient denies urinary burning or frequency. Current vital signs temp 98.4, heart rate 79, respiratory rate 16, blood pressure 131/79 with pulse ox of 97% on room air Objective - Vital Signs Vital signs: Vital Signs Temp 98.4 F 11/28/24 07:10 Pulse 79 11/28/24 07:10 Resp 16 11/28/24 07:10 BP 131/79 11/28/24 07:10 Pulse Ox 94 L 11/28/24 07:53 FiO2 Intake & Output 11/27/24 11/28/24 11/28/24 18:59 06:59 18:59 Intake Total 540 240 Balance 540 240 Intake: Oral 540 240 Other: Voiding Method Bedside Commode Bedside Commode Bedside Commode # Voids 2 3 - Exam In general patient is alert and oriented x 3 in no distress HEENT head normocephalic and atraumatic Neck is supple no JVD no goiter no lymphadenopathy no carotid bruit Chest examination is clear to auscultation no crackles no wheezing Cardiac exam reveals regular heart sounds S1 and S2 no gallops no murmurs Abdomen is soft nontender no organomegaly with normal bowel sounds Extremity exam reveals no edema no cyanosis or clubbing Neurological examination reveals no gross focal deficits - Labs CBC & Chem 7: 11/28/24 05:45 11/27/24 05:58 Labs: Abnormal Lab Results - Last 24 Hours (Table) 11/27/24 11/27/24 11/28/24 Range/Units 05:58 05:58 05:45 RBC 3.27 L 3.39 L (4.10-5.20) X 10*6/uL Hgb 11.4 L 11.8 L (12.0-15.0) g/dL Hct 34.4 L 35.2 L (37.2-46.3) % MCV 105.2 H 103.8 H (80.0-97.0) FL MCH 34.9 H 34.8 H (27.0-32.0) pg BUN 6.9 L (9.0-27.0) mg/dL Creatinine 0.4 L (0.6-1.5) mg/dL Glucose 114 H (70-110) mg/dL Total Protein 5.4 L (6.2-8.2) g/dL Albumin 3.6 L (3.8-4.9) g/dL Assessment and Plan Plan: Syncopal episode Fall with head trauma Acute nondisplaced fracture of the left anterior acetabulum Acute minimally displaced comminuted fracture of the inferior left sacral ala Underlying history of hypertension At this time patient was seen and examined Home medications reviewed and reordered Echocardiogram and carotid Doppler ordered Cardiology and orthopedic surgery consultation requested Will add neurology consultation to rule out any evidence of seizures Will follow closely
[2024-11-28] MEDS: LORazepam 1 MG/0.5 ML VIAL IV STA (09:21)
--- NOTE | 2024-11-28 10:20 | XR ---
EXAMINATION TYPE: XR abdomen 1V DATE OF EXAM: 11/28/2024 9:55 AM COMPARISON: None CLINICAL INDICATION: Female, 74 years old with history of n/v; PHH, pain TECHNIQUE: One radiographic view of the abdomen was obtained. FINDINGS: Supine imaging limited for assessment of free air. Lung bases appear clear. Gassy stomach. Moderate stool burden with air and stool extending distally to the rectum. No dilated small bowel loops. Cholecystectomy clips. Vascular calcifications in the pelvis. IMPRESSION: Moderate stool burden, possible constipation. Nonobstructive bowel gas pattern. Gassy stomach. [facility], Workstation: [email or web address], 11/28/2024 10:18 AM
[2024-11-28 10:55] LABS: ALT 13 U/L (8-44); AST 21 U/L (13-35); Albumin 3.7 g/dL (3.8-4.9); Albumin/Globulin Ratio 1.76 Ratio (1.60-3.17); Alkaline Phosphatase 67 U/L (41-126); Blood Urea Nitrogen 7.3 mg/dL (9.0-27.0); Carbon Dioxide 23.9 mmol/L (21.6-31.8); Chloride 96 mmol/L (96-109); Globulin 2.1 g/dL (1.6-3.3); Glucose 77 mg/dL (70-110); Potassium 4.4 mmol/L (3.5-5.5); Sodium 134 mmol/L (135-145); Total Bilirubin 0.5 mg/dL (0.3-1.2); Total Protein 5.8 g/dL (6.2-8.2)
[2024-11-28] MEDS ORDERED: MAGNESIUM HYDROXIDE 2,400 MG/30 ML CUP PO PRN (11:20)
[2024-11-28 11:44] LABS: Amylase 64 U/L (23-121); Lipase 19 U/L (14-63)
--- NOTE | 2024-11-28 12:25 | MR ---
EXAMINATION TYPE: MR brain wo con DATE OF EXAM: 11/28/2024 11:46 AM COMPARISON: 11/25/2024.. CLINICAL INDICATION: Female, 74 years old with history of Left sided weakness, r/o CVA; PHH, Lt side weakness, r/o CVA TECHNIQUE: Multi planar, multi sequence imaging was performed through the brain including: T1, T2, In version recovery, Diffusion weighted imaging, and gradient echo imaging. No gadolinium was given. FINDINGS: The da silva-white junctions, ventricular system, basal cisterns appear unremarkable. Scattered foci of high T2 signal intensity are seen within the periventricular white matter. Some of the right matter changes are orthogonal to the ventricles. Midline structures show no abnormality. Diffusion-weighted imaging shows no evidence of restricted diffusion. The susceptibility weighted images do not reveal a ny evidence for micro-hemorrhage. The bone marrow signal is within normal limits. Paranasal sinuses and mastoid air cells: Mild scattered paranasal sinus disease. Visualized orbits: Bilateral aphakia IMPRESSION: 1. No evidence of intracranial mass or acute/subacute infarct. 2. With matter changes some of which are orthogonal to the lateral ventricles. Correlate for history demyelination. No evidence for active demyelination. Nonspecific white matter changes, likely seconda ry to small vessel ischemic disease. [facility], , 11/28/2024 12:23 PM
--- NOTE | 2024-11-28 12:39 | P.PN ---
Subjective Progress Note Date: 11/28/24 Principal diagnosis: Left-sided pelvic fracture Patient evaluated at bedside today, she is resting in her hospital bed. She states that she has been up to the chair on a few occasions. She feels that the pain in the left pelvic region is stable at this time. She is being followed by multiple medical specialties at this time. Objective - Vital Signs Vital signs: Vital Signs Temp 98.1 F 11/28/24 11:49 Pulse 76 11/28/24 11:49 Resp 16 11/28/24 11:49 BP 128/72 11/28/24 11:49 Pulse Ox 97 11/28/24 11:49 FiO2 Intake & Output 11/27/24 11/28/24 11/28/24 18:59 06:59 18:59 Intake Total 540 240 Balance 540 240 Intake: Oral 540 240 Other: Voiding Method Bedside Commode Bedside Commode Bedside Commode # Voids 2 3 - Exam Left lower extremity: No obvious open lesions or sores are visualized throughout the left hip/low back area. There are no areas of erythema or soft tissue swelling Patient demonstrates mild tenderness with palpation in the lower lumbar spine more near the sacrum. She is nontender with palpation throughout the femur, knee, lower leg, foot or ankle Patient is able to wiggle the toes with no difficulty, plantarflexion, dorsiflexion, EHL, FHL are intact. Knee extension and knee flexion are intact. Hip flexion along with internal and external rotation does reproduce discomfort. Patient has a very difficult time with straight leg raise due to pain. Maci nt's right lower extremity demonstrates no focal deficits, she has good range of motion and adequate strength. Calf is soft, no tenderness with palpation. Anterior posterior compartments of the upper and lower leg are soft and compressible Sensory exam to light touch is intact throughout the extremity, dorsalis pedis pulses 2+ - Labs CBC & Chem 7: 11/28/24 05:45 11/28/24 05:45 Labs: Abnormal Lab Results - Last 24 Hours (Table) 11/28/24 11/28/24 Range/Units 05:45 05:45 RBC 3.39 L (4.10-5.20) X 10*6/uL Hgb 11.8 L (12.0-15.0) g/dL Hct 35.2 L (37.2-46.3) % MCV 103.8 H (80.0-97.0) FL MCH 34.8 H (27.0-32.0) pg Sodium 134 L (135-145) mmol/L Anion Gap 14.10 H (4.00-12.00) mmol/L BUN 7.3 L (9.0-27.0) mg/dL Creatinine 0.5 L (0.6-1.5) mg/dL Total Protein 5.8 L (6.2-8.2) g/dL Albumin 3.7 L (3.8-4.9) g/dL Assessment and Plan Assessment: Left-sided lateral compression injury Minimally displaced left anterior acetabular fracture Minimally displaced left sacral alar fracture Syncopal episode resulting in fall Other medical comorbidities Plan: Continue conservative measures, this to include PT/OT evaluation, the use of toe-touch weightbearing with a walker, low-dose muscle relaxer versus pain medication GI DVT prophylaxis per primary medical service Other medical specialty recommendations appreciated Toe-touch weightbearing with walker Encourage incentive spirometer Recommending subacute rehab placement Orthopedically patient remained stable, please contact our service with any further questions. Follow-up information will be placed in chart Time with Patient: Less than 30
--- NOTE | 2024-11-28 22:49 | EEG ---
DATE OF SERVICE: 11/28/2024 ELECTROENCEPHALOGRAM REPORT PREAMBLE: This is a 74-year-old female who had a syncopal episode. EEG FINDINGS: This is a 21-channel digital EEG recorded with video component, utilizing 10/20 international system with referential and bipolar montages. The background consists of moderately well-developed and regulated, mixed frequencies of low-voltage fast frequency beta intermixed with some 8 hertz alpha and some theta activity in bihemispheric region. Background is posterior dominant and seems to be slightly reactive to eye opening or closing. Photic driving response was not seen. Drowsiness and stage 2 sleep was seen with appearance of mixed frequencies with sleep spindles and vertex waves. No definitive focal or generalized epileptiform activity was seen. IMPRESSION: This is probably mainly a normal drowsy and sleep EEG. Brief period of wakefulness reveals normally appearing background. No epileptiform activity was seen. MMKATIAL / IJN: [id number] / MTDD
--- NOTE | 2024-11-29 05:54 | P.PN ---
Subjective Progress Note Date: 11/28/24 Patient was seen for follow-up. Patient states she is feeling better. No further vomiting. Denies any headache or dizziness. Patient is laying comfortably in the bed. Objective - Vital Signs Vital signs: Vital Signs Temp 98.2 F 11/28/24 20:00 Pulse 83 11/28/24 20:00 Resp 16 11/28/24 20:00 BP 160/93 11/28/24 20:00 Pulse Ox 83 L 11/28/24 20:00 FiO2 Intake & Output 11/28/24 11/28/24 11/29/24 06:59 18:59 06:59 Intake Total 1979 Balance 1979 Intake: Oral 1979 Other: Voiding Method Bedside Commode Bedside Commode Bedside Commode # Voids 3 4 - Exam Mental status, speech and language functions are normal. Cranial nerves are normal. On muscle strength testing, the strength appears normal in both arms. The deltoid, biceps and triceps. Appeals Analyst is slightly weaker on the left 5-. Patient's ankle dorsiflexion again appeared weaker on the left. Somehow it appears that patient was guarding her left-side. After reinforcement, patient was able to give full resistance with normal strength of the left ankle dorsiflexion. Sensations are equal. No ataxia for [id number] testing. - Labs CBC & Chem 7: 12/01/24 04:16 11/30/24 04:50 Labs: Abnormal Lab Results - Last 24 Hours (Table) 11/28/24 11/28/24 Range/Units 05:45 05:45 RBC 3.39 L (4.10-5.20) X 10*6/uL Hgb 11.8 L (12.0-15.0) g/dL Hct 35.2 L (37.2-46.3) % MCV 103.8 H (80.0-97.0) FL MCH 34.8 H (27.0-32.0) pg Sodium 134 L (135-145) mmol/L Anion Gap 14.10 H (4.00-12.00) mmol/L BUN 7.3 L (9.0-27.0) mg/dL Creatinine 0.5 L (0.6-1.5) mg/dL Total Protein 5.8 L (6.2-8.2) g/dL Albumin 3.7 L (3.8-4.9) g/dL Assessment and Plan Assessment: * Syncopal spell, unclear cause. Perhaps vasovagal/orthostatic because patient has been vomiting for about 2 days prior. * Frequent vomiting, unclear cause. Patient denies any abdominal pain. * Left hip acetabular fracture * Mild left-sided weakness, rule out CVA. * History of left rotator cuff surgery Plan: * Although patient was felt to have some weakness of the left side, but appears is more from guarding. Today after reinforcement, the strength appeared normal on the left side. MRI ruled out any acute stroke. * MRI of the brain without contrast revealed no evidence of intracranial mass or acute/subacute infarct. Within white matter changes, some of which are orthogonal to the lateral ventricles. Correlate for history of demyelination. No evidence for active demyelination. Nonspecific white matter changes, likely secondary to small vessel ischemic disease. I personally reviewed MRI, agree with the findings. * Carotid Doppler revealed no hemodynamically significant ICA stenosis on either side. Antegrade flow in both vertebral arteries. * 2-D echo revealed normal LV size and systolic function. EF is 50 reps 60%. No obvious regional wall motion abnormalities. Normal left and right atrial size. Aortic valve sclerosis but without restriction or stenosis. Hemoglobin A1c 5.3 on 10/29/2024 Lipid panel with cholesterol 206, LDL 92, HDL 87 and triglycerides 131. TSH normal. EEG is normal during drowsiness and stage II sleep. Brief period of wakefulness revealed normal-appearing background. No epileptiform activity was seen. B12 959, folate 8.3. We will start folate. Vomiting has resolved it appears. However she is constipated. We will defer to IM. Abdomen is soft. Start aspirin 81 mg daily. Neurologically clear for discharge. Dr. Chu starting neurology service in the morning for any concerns.
[2024-11-29 09:56] LABS: HCT 33.5 % (37.2-46.3); HGB 11.5 g/dL (12.0-15.0); MCH 35.1 pg (27.0-32.0); MCHC 34.3 g/dL (32.0-37.0); MCV 102.1 FL (80.0-97.0); Mean Platelet Volume 10.5 FL (9.5-12.2); NRBC Per 100 WBC 0 X 10*3/uL (0.00-0.01); Platelet Count 294 X 10*3/uL (140-440); RBC 3.28 X 10*6/uL (4.10-5.20); RDW 12.7 % (11.5-14.5); WBC 10.25 X 10*3/uL (4.50-10.00)
[2024-11-29 10:40] LABS: Basophils # (A) 0.04 X 10*3/uL (0.00-0.10); Basophils % (A) 0.4 %; Lymphocytes # (A) 1.05 X 10*3/uL (0.90-5.00); Lymphocytes % (A) 10.2 %; Monocytes # (A) 1.55 X 10*3/uL (0.20-1.00); Monocytes % (A) 15.1 %; Neutrophils # (A) 7.46 X 10*3/uL (1.80-7.70); Neutrophils % (A) 72.8 %
[2024-11-29 11:20] LABS: ALT 12 U/L (8-44); AST 21 U/L (13-35); Albumin 3.7 g/dL (3.8-4.9); Albumin/Globulin Ratio 1.61 Ratio (1.60-3.17); Alkaline Phosphatase 71 U/L (41-126); Blood Urea Nitrogen 11.1 mg/dL (9.0-27.0); Carbon Dioxide 21.2 mmol/L (21.6-31.8); Chloride 92 mmol/L (96-109); Globulin 2.3 g/dL (1.6-3.3); Glucose 80 mg/dL (70-110); Potassium 4.2 mmol/L (3.5-5.5); Sodium 131 mmol/L (135-145); Total Bilirubin 0.6 mg/dL (0.3-1.2)
--- NOTE | 2024-11-29 12:50 | XR ---
Left foot. HISTORY: Pain following fall. COMPARISON: None. TECHNIQUE: 3 views of left foot were obtained. FINDINGS: There is mild osteopenia. There is no fracture, dislocation or focal intraosseous abnormality. There is mild osteoarthritic lo nge of the first MTP joint. There is mild scattered arteriovascular calcification. IMPRESSION: No evidence of acute trauma X-Ray Rayray Marti, Workstation: [facility], 11/29/2024 12:47 PM
--- NOTE | 2024-11-29 12:51 | P.PN ---
Subjective Progress Note Date: 11/29/24 Ban Armando, is a 74-year-old female who presented to [facility] emergency room after having a syncopal episode and sustaining a fall with multiple trauma including head trauma. Patient stated that she was not clear about the circumstances of this episode, she stated that she woke up on the floor and was not able to stand up, EMS were called and patient was brought into emergency room. She was evaluated in the emergency room vital examination on presentation revealed a temperature of 98.7 pulse 96 respiration 18 blood pressure 147/84 pulse ox 95% on room air Laboratory data revealed a white blood count of 8.5 hemoglobin 11.9 platelet count 237 BUN 10 creatinine 0.55 Testing in the emergency room revealed CT scan of the brain revealed no acute intracranial process, CT scan of the left hip revealed acute fracture of the left anterior acetabulum and acute minimally displaced comminuted fracture of the left inferior sacral ala Patient was admitted to medical floor for further evaluation and treatment On 11/27/2024 patient is alert and oriented x 3. Patient currently resting in bed. Patient was evaluated Ortho services we will continue conservative management at this time discharge planning to [facility]. Awaiting neurology input. Current vital signs temp 98.3, heart rate 78, respiratory rate 16, blood pressure 149/81 with pulse ox of 96% on room air. Per cardiology patient will need event monitor at discharge On 11/28/2024 patient is alert and oriented x 3. Neurology services following MRI and EEG has been ordered. Event monitor at bedside. Patient still comp laining that she has been having some nausea and vomiting will order amylase and lipase levels. Patient denies chest pain. Patient denies urinary burning or frequency. Current vital signs temp 98.4, heart rate 79, respiratory rate 16, blood pressure 131/79 with pulse ox of 97% on room air On 11/29/2024 patient was seen and examined on the medical floor she is alert and oriented x 3 in no apparent distress, she is complaining of constipation, is also complaining of left ankle and left foot pain, otherwise she denies any complaints there is no fever or chills no headache or dizziness no chest pain no shortness of breath no cough no nausea or vomiting no abdominal pain no diarrhea no urinary symptoms. At this time patient will be given lactulose, will check x-ray of the left ankle and left foot, will continue to follow closely. Objective - Vital Signs Vital signs: Vital Signs Temp 98.7 F 11/29/24 07:20 Pulse 90 11/29/24 07:20 Resp 16 11/29/24 07:20 BP 164/76 11/29/24 07:20 Pulse Ox 96 11/29/24 07:20 FiO2 Intake & Output 11/28/24 11/29/24 11/29/24 18:59 06:59 18:59 Intake Total 1979 Balance 1979 Intake: Oral 1979 Other: Voiding Method Bedside Commode Bedside Commode Bedside Commode # Voids 4 2 - Exam In general patient is alert and oriented x 3 in no distress HEENT head normocephalic and atraumatic Neck is supple no JVD no goiter no lymphadenopathy no carotid bruit Chest examination is clear to auscultation no crackles no wheezing Cardiac exam reveals regular heart sounds S1 and S2 no gallops no murmurs Abdomen is soft nontender no organomegaly with normal bowel sounds Extremity exam reveals no edema no cyanosis or clubbing Neurological examination reveals no gross focal deficits - Labs CBC & Chem 7: 11/29/24 05:43 11/29/24 05:43 Labs: Abnormal Lab Results - Last 24 Hours (Table) 11/29/24 11/29/24 11/29/24 Range/Units 05:43 05:43 05:43 WBC 10.25 H (4.50-10.00) X 10*3/uL RBC 3.28 L (4.10-5.20) X 10*6/uL Hgb 11.5 L (12.0-15.0) g/dL Hct 33.5 L (37.2-46.3) % MCV 102.1 H (80.0-97.0) FL MCH 35.1 H (27.0-32.0) pg Immature Gran # 0.05 H (0.00-0.04) X 10*3/uL Monocytes # 1.55 H (0.20-1.00) X 10*3/uL Sodium 131 L (135-145) mmol/L Chloride 92 L (96-109) mmol/L Carbon Dioxide 21.2 L (21.6-31.8) mmol/L Anion Gap 17.80 H (4.00-12.00) mmol/L Creatinine 0.5 L (0.6-1.5) mg/dL BUN/Creatinine Ratio 22.20 H (12.00-20.00) Ratio Total Protein 6.0 L (6.2-8.2) g/dL Albumin 3.7 L (3.8-4.9) g/dL Vitamin B12 959.0 H (200.0-944.0) pg/mL Assessment and Plan Plan: Syncopal episode Fall with head trauma Acute nondisplaced fracture of the left anterior acetabulum Acute minimally displaced comminuted fracture of the inferior left sacral ala Underlying history of hypertension At this time patient was seen and examined Home medications reviewed and reordered Echocardiogram and carotid Doppler ordered Cardiology and orthopedic surgery consultation requested Will add neurology consultation to rule out any evidence of seizures Will follow closely
--- NOTE | 2024-11-29 12:51 | XR ---
Left ankle. HISTORY: Pain following trauma. COMPARISON: None TECHNIQUE: 3 views left ankle were obtained. FINDINGS: There is no fracture, dislocation, intraosseous or intra-articular abnormality. The ankle mortise is intact. There is no soft tissue swelling. IMPRESSION: No evidence of acute trauma X-Ray Rayray Marti, , 11/29/2024 12:49 PM
[2024-11-29] MEDS: LACTULOSE 20 GM/30 ML CUP PO ONE (14:15)
[2024-11-29] MEDS: ENOXAPARIN 40 MG/0.4 ML SYRINGE SQ SCH (14:16)
[2024-11-29] MEDS: SODIUM CHLORIDE 0.9% 1,000 ML IV STA (14:17)
[2024-11-29] MEDS: CYCLOBENZAPRINE 5 MG TAB PO PRN (21:53)
[2024-11-30 09:33] LABS: Basophils # (A) 0.04 X 10*3/uL (0.00-0.10); Basophils % (A) 0.5 %; Eosinophils # (A) 0.11 X 10*3/uL (0.04-0.35); Eosinophils % (A) 1.3 %; HCT 32.2 % (37.2-46.3); HGB 11.1 g/dL (12.0-15.0); Lymphocytes # (A) 1.07 X 10*3/uL (0.90-5.00); Lymphocytes % (A) 12.8 %; MCH 34.9 pg (27.0-32.0); MCHC 34.5 g/dL (32.0-37.0); MCV 101.3 FL (80.0-97.0); Mean Platelet Volume 10.1 FL (9.5-12.2); Monocytes # (A) 1.52 X 10*3/uL (0.20-1.00); Monocytes % (A) 18.2 %; NRBC Per 100 WBC 0 X 10*3/uL (0.00-0.01); Neutrophils # (A) 5.57 X 10*3/uL (1.80-7.70); Neutrophils % (A) 66.7 %; Platelet Count 321 X 10*3/uL (140-440); RBC 3.18 X 10*6/uL (4.10-5.20); RDW 12.6 % (11.5-14.5); WBC 8.35 X 10*3/uL (4.50-10.00)
--- NOTE | 2024-11-30 09:38 | P.PN ---
Subjective Progress Note Date: 11/30/24 Ban Armando, is a 74-year-old female who presented to [facility] emergency room after having a syncopal episode and sustaining a fall with multiple trauma including head trauma. Patient stated that she was not clear about the circumstances of this episode, she stated that she woke up on the floor and was not able to stand up, EMS were called and patient was brought into emergency room. She was evaluated in the emergency room vital examination on presentation revealed a temperature of 98.7 pulse 96 respiration 18 blood pressure 147/84 pulse ox 95% on room air Laboratory data revealed a white blood count of 8.5 hemoglobin 11.9 platelet count 237 BUN 10 creatinine 0.55 Testing in the emergency room revealed CT scan of the brain revealed no acute intracranial process, CT scan of the left hip revealed acute fracture of the left anterior acetabulum and acute minimally displaced comminuted fracture of the left inferior sacral ala Patient was admitted to medical floor for further evaluation and treatment On 11/27/2024 patient is alert and oriented x 3. Patient currently resting in bed. Patient was evaluated Ortho services we will continue conservative management at this time discharge planning to [facility]. Awaiting neurology input. Current vital signs temp 98.3, heart rate 78, respiratory rate 16, blood pressure 149/81 with pulse ox of 96% on room air. Per cardiology patient will need event monitor at discharge On 11/28/2024 patient is alert and oriented x 3. Neurology services following MRI and EEG has been ordered. Event monitor at bedside. Patient still comp laining that she has been having some nausea and vomiting will order amylase and lipase levels. Patient denies chest pain. Patient denies urinary burning or frequency. Current vital signs temp 98.4, heart rate 79, respiratory rate 16, blood pressure 131/79 with pulse ox of 97% on room air On 11/29/2024 patient was seen and examined on the medical floor she is alert and oriented x 3 in no apparent distress, she is complaining of constipation, is also complaining of left ankle and left foot pain, otherwise she denies any complaints there is no fever or chills no headache or dizziness no chest pain no shortness of breath no cough no nausea or vomiting no abdominal pain no diarrhea no urinary symptoms. At this time patient will be given lactulose, will check x-ray of the left ankle and left foot, will continue to follow closely. On 11/30/2024 patient is alert and oriented x 3. Patient still having constipation will order additional dose of lactulose. Left ankle x-ray negative for fracture. Discharge planning to [facility] anticipate possible discharge home tomorrow neurology services cleared patient. Patient denies chest pain or shortness of breath. Patient denies nausea vomiting or diarrhea. Current vital signs temp 97.7, heart rate 98, respiratory rate 17, blood pressure 155/85 with a pulse ox of 96% on room air Objective - Vital Signs Vital signs: Vital Signs Temp 99.6 F 11/30/24 07:05 Pulse 80 11/30/24 07:05 Resp 16 11/30/24 07:05 BP 163/76 11/30/24 07:05 Pulse Ox 96 11/30/24 07:05 FiO2 Intake & Output 11/29/24 11/30/24 11/30/24 18:59 06:59 18:59 Intake Total 720 540 Balance 720 540 Intake: Oral 720 540 Other: Voiding Method Bedside Commode Bedside Commode # Voids 1 2 - Exam In general patient is alert and oriented x 3 in no distress HEENT head normocephalic and atraumatic Neck is supple no JVD no goiter no lymphadenopathy no carotid bruit Chest examination is clear to auscultation no crackles no wheezing Cardiac exam reveals regular heart sounds S1 and S2 no gallops no murmurs Abdomen is soft nontender no organomegaly with normal bowel sounds Extremity exam reveals no edema no cyanosis or clubbing Neurological examination reveals no gross focal deficits - Labs CBC & Chem 7: 11/30/24 04:50 11/29/24 05:43 Labs: Abnormal Lab Results - Last 24 Hours (Table) 11/29/24 11/29/24 11/29/24 Range/Units 05:43 05:43 05:43 WBC 10.25 H (4.50-10.00) X 10*3/uL RBC 3.28 L (4.10-5.20) X 10*6/uL Hgb 11.5 L (12.0-15.0) g/dL Hct 33.5 L (37.2-46.3) % MCV 102.1 H (80.0-97.0) FL MCH 35.1 H (27.0-32.0) pg Immature Gran # 0.05 H (0.00-0.04) X 10*3/uL Monocytes # 1.55 H (0.20-1.00) X 10*3/uL Sodium 131 L (135-145) mmol/L Chloride 92 L (96-109) mmol/L Carbon Dioxide 21.2 L (21.6-31.8) mmol/L Anion Gap 17.80 H (4.00-12.00) mmol/L Creatinine 0.5 L (0.6-1.5) mg/dL BUN/Creatinine Ratio 22.20 H (12.00-20.00) Ratio Total Protein 6.0 L (6.2-8.2) g/dL Albumin 3.7 L (3.8-4.9) g/dL Vitamin B12 959.0 H (200.0-944.0) pg/mL 11/30/24 Range/Units 04:50 WBC (4.50-10.00) X 10*3/uL RBC 3.18 L (4.10-5.20) X 10*6/uL Hgb 11.1 L (12.0-15.0) g/dL Hct 32.2 L (37.2-46.3) % MCV 101.3 H (80.0-97.0) FL MCH 34.9 H (27.0-32.0) pg Immature Gran # (0.00-0.04) X 10*3/uL Monocytes # 1.52 H (0.20-1.00) X 10*3/uL Sodium (135-145) mmol/L Chloride (96-109) mmol/L Carbon Dioxide (21.6-31.8) mmol/L Anion Gap (4.00-12.00) mmol/L Creatinine (0.6-1.5) mg/dL BUN/Creatinine Ratio (12.00-20.00) Ratio Total Protein (6.2-8.2) g/dL Albumin (3.8-4.9) g/dL Vitamin B12 (200.0-944.0) pg/mL Assessment and Plan Plan: Syncopal episode Fall with head trauma Acute nondisplaced fracture of the left anterior acetabulum Acute minimally displaced comminuted fracture of the inferior left sacral ala Underlying history of hypertension At this time patient was seen and examined Home medications reviewed and reordered Echocardiogram and carotid Doppler ordered Cardiology and orthopedic surgery consultation requested Will add neurology consultation to rule out any evidence of seizures Will follow closely
[2024-11-30 09:53] LABS: ALT 11 U/L (8-44); AST 19 U/L (13-35); Albumin 3.6 g/dL (3.8-4.9); Albumin/Globulin Ratio 1.64 Ratio (1.60-3.17); Alkaline Phosphatase 68 U/L (41-126); Blood Urea Nitrogen 10.6 mg/dL (9.0-27.0); Calcium 8.9 mg/dL (8.7-10.3); Carbon Dioxide 22.4 mmol/L (21.6-31.8); Chloride 95 mmol/L (96-109); Globulin 2.2 g/dL (1.6-3.3); Glucose 89 mg/dL (70-110); Potassium 4.1 mmol/L (3.5-5.5); Sodium 132 mmol/L (135-145); Total Bilirubin 0.5 mg/dL (0.3-1.2); Total Protein 5.8 g/dL (6.2-8.2)
[2024-11-30] MEDS: LACTULOSE 20 GM/30 ML CUP PO ONE (10:42)
[2024-12-01 09:35] LABS: Basophils # (A) 0.05 X 10*3/uL (0.00-0.10); Basophils % (A) 0.9 %; Eosinophils # (A) 0.12 X 10*3/uL (0.04-0.35); Eosinophils % (A) 2.1 %; HGB 11.4 g/dL (12.0-15.0); Lymphocytes # (A) 1.21 X 10*3/uL (0.90-5.00); Lymphocytes % (A) 20.7 %; MCH 34.8 pg (27.0-32.0); MCHC 33.5 g/dL (32.0-37.0); MCV 103.7 FL (80.0-97.0); Mean Platelet Volume 10.6 FL (9.5-12.2); Monocytes # (A) 1.14 X 10*3/uL (0.20-1.00); Monocytes % (A) 19.5 %; NRBC Per 100 WBC 0 X 10*3/uL (0.00-0.01); Neutrophils # (A) 3.26 X 10*3/uL (1.80-7.70); Neutrophils % (A) 55.8 %; Platelet Count 350 X 10*3/uL (140-440); RBC 3.28 X 10*6/uL (4.10-5.20); RDW 12.8 % (11.5-14.5); WBC 5.84 X 10*3/uL (4.50-10.00)
[2024-12-01 11:32] LABS: INR 0.98 sec (0.93-1.11)
[2024-12-01] MEDS: FOLIC ACID 1 MG TAB PO SCH (14:05)
--- NOTE | 2024-12-01 17:08 | P.PN ---
Subjective Progress Note Date: 12/01/24 Ban Armando, is a 74-year-old female who presented to [facility] emergency room after having a syncopal episode and sustaining a fall with multiple trauma including head trauma. Patient stated that she was not clear about the circumstances of this episode, she stated that she woke up on the floor and was not able to stand up, EMS were called and patient was brought into emergency room. She was evaluated in the emergency room vital examination on presentation revealed a temperature of 98.7 pulse 96 respiration 18 blood pressure 147/84 pulse ox 95% on room air Laboratory data revealed a white blood count of 8.5 hemoglobin 11.9 platelet count 237 BUN 10 creatinine 0.55 Testing in the emergency room revealed CT scan of the brain revealed no acute intracranial process, CT scan of the left hip revealed acute fracture of the left anterior acetabulum and acute minimally displaced comminuted fracture of the left inferior sacral ala Patient was admitted to medical floor for further evaluation and treatment On 11/27/2024 patient is alert and oriented x 3. Patient currently resting in bed. Patient was evaluated Ortho services we will continue conservative management at this time discharge planning to [facility]. Awaiting neurology input. Current vital signs temp 98.3, heart rate 78, respiratory rate 16, blood pressure 149/81 with pulse ox of 96% on room air. Per cardiology patient will need event monitor at discharge On 11/28/2024 patient is alert and oriented x 3. Neurology services following MRI and EEG has been ordered. Event monitor at bedside. Patient still comp laining that she has been having some nausea and vomiting will order amylase and lipase levels. Patient denies chest pain. Patient denies urinary burning or frequency. Current vital signs temp 98.4, heart rate 79, respiratory rate 16, blood pressure 131/79 with pulse ox of 97% on room air On 11/29/2024 patient was seen and examined on the medical floor she is alert and oriented x 3 in no apparent distress, she is complaining of constipation, is also complaining of left ankle and left foot pain, otherwise she denies any complaints there is no fever or chills no headache or dizziness no chest pain no shortness of breath no cough no nausea or vomiting no abdominal pain no diarrhea no urinary symptoms. At this time patient will be given lactulose, will check x-ray of the left ankle and left foot, will continue to follow closely. On 11/30/2024 patient is alert and oriented x 3. Patient still having constipation will order additional dose of lactulose. Left ankle x-ray negative for fracture. Discharge planning to [facility] anticipate possible discharge home tomorrow neurology services cleared patient. Patient denies chest pain or shortness of breath. Patient denies nausea vomiting or diarrhea. Current vital signs temp 97.7, heart rate 98, respiratory rate 17, blood pressure 155/85 with a pulse ox of 96% on room air On 12/01/2024 patient was seen and examined on the medical floor she is alert and oriented x 3 in no apparent distress there is no fever or chills no headache or dizziness no chest pain no shortness of breath no cough no nausea or vomiting no abdominal pain no diarrhea and no urinary symptoms, lower extremity pain is improving. Objective - Vital Signs Vital signs: Vital Signs Temp 97.5 F L 12/01/24 12:21 Pulse 79 12/01/24 12:21 Resp 18 12/01/24 12:21 BP 111/70 12/01/24 12:21 Pulse Ox 97 12/01/24 12:21 FiO2 Intake & Output 11/30/24 12/01/24 12/01/24 18:59 06:59 18:59 Intake Total 1320 Balance 1320 Intake: Oral 1320 Other: Voiding Method Bedside Commode Bedside Commode Bedside Commode # Voids 4 1 # Bowel Movements 2 - Exam In general patient is alert and oriented x 3 in no distress HEENT head normocephalic and atraumatic Neck is supple no JVD no goiter no lymphadenopathy no carotid bruit Chest examination is clear to auscultation no crackles no wheezing Cardiac exam reveals regular heart sounds S1 and S2 no gallops no murmurs Abdomen is soft nontender no organomegaly with normal bowel sounds Extremity exam reveals no edema no cyanosis or clubbing Neurological examination reveals no gross focal deficits - Labs CBC & Chem 7: 12/01/24 04:16 11/30/24 04:50 Labs: Abnormal Lab Results - Last 24 Hours (Table) 12/01/24 Range/Units 04:16 RBC 3.28 L (4.10-5.20) X 10*6/uL Hgb 11.4 L (12.0-15.0) g/dL Hct 34.0 L (37.2-46.3) % MCV 103.7 H (80.0-97.0) FL MCH 34.8 H (27.0-32.0) pg Immature Gran # 0.06 H (0.00-0.04) X 10*3/uL Monocytes # 1.14 H (0.20-1.00) X 10*3/uL Microbiology - Last 24 Hours (Table) 11/29/24 12:47 Blood Culture - Preliminary Blood Assessment and Plan Plan: Syncopal episode Fall with head trauma Acute nondisplaced fracture of the left anterior acetabulum Acute minimally displaced comminuted fracture of the inferior left sacral ala Underlying history of hypertension At this time patient was seen and examined Home medications reviewed and reordered Echocardiogram and carotid Doppler ordered Cardiology and orthopedic surgery consultation requested Will add neurology consultation to rule out any evidence of seizures Will follow closely
[2024-12-02] MEDS: ALPRAZolam 1 MG TAB PO PRN (01:58)
[2024-12-02 08:22] VITALS: BP 160/74; PULSE 81; RESP 14; TEMP 97.9
[2024-12-02] MEDS: GABAPENTIN 400 MG CAP PO SCH (08:57)
--- NOTE | 2024-12-02 12:09 | P.DS ---
Providers Date of admission: 11/25/24 20:40 Expected date of discharge: 12/02/24 Attending physician: Eulogio Pineda Consults: 11/26/24 07:40 Consult Physician Routine Consulting Provider: Ayah Beasley Consult Reason/Comments: syncope Do you want consulting provider notified?: Yes 11/26/24 07:41 Consult Physician Routine Consulting Provider: Singh Figueroa Consult Reason/Comments: hip pain Do you want consulting provider notified?: Yes 11/27/24 08:18 Consult Physician Routine Consulting Provider: Pedro Noel Consult Reason/Comments: syncope Do you want consulting provider notified?: Yes Primary care physician: Eulogio Pineda [facility] Course: Discharge diagnosis Syncopal episode Fall with head trauma Acute nondisplaced fracture of the left anterior acetabulum Acute minimally displaced comminuted fracture of the inferior left sacral ala Underlying history of hypertension Hospital course Ban Armando, is a 74-year-old female who presented to [facility] emergency room after having a syncopal episode and sustaining a fall with multiple trauma including head trauma. Patient stated that she was not clear about the circumstances of this episode, she stated that she woke up on the floor and was not able to stand up, EMS were called and patient was brought into emergency room. She was evaluated in the emergency room vital examination on presentation revealed a temperature of 98.7 pulse 96 respiration 18 blood pressure 147/84 pulse ox 95% on room air Laboratory data revealed a white blood count of 8.5 hemoglobin 11.9 platelet count 237 BUN 10 creatinine 0.55 Testing in the emergency room revealed CT scan of the brain revealed no acute intracranial process, CT scan of the left hip revealed acute fracture of the left anterior acetabulum and acute minimally displaced comminuted fracture of the left inferior sacral ala Patient was admitted to medical floor for further evaluation and treatment On 11/27/2024 patient is alert and oriented x 3. Patient currently resting in bed. Patient was evaluated Ortho services we will continue conservative management at this time discharge planning to [facility]. Awaiting neurology input. Current vital signs temp 98.3, heart rate 78, respiratory rate 16, blood pressure 149/81 with pulse ox of 96% on room air. Per cardiology patient will need event monitor at discharge On 11/28/2024 patient is alert and oriented x 3. Neurology services following MRI and EEG has been ordered. Event monitor at bedside. Patient still complaining that she has been having some nausea and vomiting will order amylase and lipase levels. Patient denies chest pain. Patient denies urinary burning or frequency. Current vital signs temp 98.4, heart rate 79, respiratory rate 16, blood pressure 131/79 with pulse ox of 97% on room air On 11/29/2024 patient was seen and examined on the medical floor she is alert and oriented x 3 in no apparent distress, she is complaining of constipation, is also complaining of left ankle and left foot pain, otherwise she denies any complaints there is no fever or chills no headache or dizziness no chest pain no shortness of breath no cough no nausea or vomiting no abdominal pain no diarrhea no urinary symptoms. At this time patient will be given lactulose, will check x-ray of the left ankle and left foot, will continue to follow closely. On 11/30/2024 patient is alert and oriented x 3. Patient still having constipation will order additional dose of lactulose. Left ankle x-ray negative for fracture. Discharge planning to [facility] anticipate possible discharge home tomorrow neurology services cleared patient. Patient denies chest pain or shortness of breath. Patient denies nausea vomiting or diarrhea. Current vital signs temp 97.7, heart rate 98, respiratory rate 17, blood pressure 155/85 with a pulse ox of 96% on room air On 12/01/2024 patient was seen and examined on the medical floor she is alert and oriented x 3 in no apparent distress there is no fever or chills no headache or dizziness no chest pain no shortness of breath no cough no nausea or vomiting no abdominal pain no diarrhea and no urinary symptoms, lower extremity pain is improving. On 12/02/2024 patient is alert and oriented times 3. Patient will be discharged to [facility] today. He denies chest pain or shortness of breath. Patient denies nausea vomiting or diarrhea. Patient denies any urinary burning or frequency Patient Condition at Discharge: Stable Plan - Discharge Summary Discharge Rx Participant: No New Discharge Prescriptions: New RX: Losartan [Cozaar] 50 mg PO DAILY tab RX: Cyclobenzaprine [Flexeril] 5 mg PO BID PRN #0 tab PRN Reason: Muscle Spasm Rivaroxaban [Xarelto] 10 mg PO DAILY 30 Days #30 tab RX: Aspirin 81 mg PO DAILY tab RX: Folic Acid 1 mg PO DAILY tab RX: Metoprolol Succinate (ER) [Toprol XL] 12.5 mg PO DAILY tab Continue RX: Latanoprost [Latanoprost 0.005%] 1 drop BOTH EYES HS RX: Dorzolamide-Timol 2.23%/0.68% [Cosopt] 1 drop LEFT EYE BID No Action RX: Gabapentin 800 mg PO BID ALPRAZolam [Xanax] 1 mg PO DAILY PRN PRN Reason: Anxiety Discharge Medication List RX: Gabapentin 800 mg PO BID 12/18/21 [History] ALPRAZolam [Xanax] 1 mg PO DAILY PRN 11/26/24 [History] RX: Dorzolamide-Timol 2.23%/0.68% [Cosopt] 1 drop LEFT EYE BID 11/26/24 [History] RX: Latanoprost [Latanoprost 0.005%] 1 drop BOTH EYES HS 11/26/24 [History] RX: Aspirin 81 mg PO DAILY tab 12/02/24 [Rx] RX: Cyclobenzaprine [Flexeril] 5 mg PO BID PRN #0 tab 12/02/24 [Rx] RX: Folic Acid 1 mg PO DAILY tab 12/02/24 [Rx] RX: Losartan [Cozaar] 50 mg PO DAILY tab 12/02/24 [Rx] RX: Metoprolol Succinate (ER) [Toprol XL] 12.5 mg PO DAILY tab 12/02/24 [Rx] Rivaroxaban [Xarelto] 10 mg PO DAILY 30 Days #30 tab 12/02/24 [Rx] Follow up Appointment(s)/Referral(s): Duncan Rojas PAC [PHYSICIAN [employer]GER] - 2 Weeks Eulogio Pineda MD [Primary Care Provider] - 1-2 days Activity/Diet/Wound Care/Special Instructions: needs event monitor put on the day of discharge per cardiology's orders Orthopedic discharge instructions: 1. Toe-touch weightbearing left lower extremity 2. Utilize walker at all times 3. Follow-up in advanced orthopedics in 2 weeks for recheck Discharge Disposition: TRANSFER TO SNF/ECF
== END 2024-12-02 13:37 | DRG 551 ==
LOC: EC 18:28 → 6NMEDSUR 20:39 → OBSVTOIN 20:40 → 6NMEDSUR 22:46 → 5NMEDONC 23:54
PROVIDERS: ADMIT Internal Medicine; ATTEND Internal Medicine
DX: S32.111A Minimally displaced Zone I fracture of sacrum, initial encounter for closed fracture (principal); S32.492A Other specified fracture of left acetabulum, initial encounter for closed fracture; S09.90XA Unspecified injury of head, initial encounter; I67.82 Cerebral ischemia; J45.909 Unspecified asthma, uncomplicated; I10 Essential (primary) hypertension; W10.9XXA Fall (on) (from) unspecified stairs and steps, initial encounter; S16.1XXA Strain of muscle, fascia and tendon at neck level, initial encounter; K59.00 Constipation, unspecified; R53.1 Weakness; M25.572 Pain in left ankle and joints of left foot; R11.10 Vomiting, unspecified; H40.9 Unspecified glaucoma; R91.1 Solitary pulmonary nodule; M54.32 Sciatica, left side; H35.30 Unspecified macular degeneration; R55 Syncope and collapse; Z91.81 History of falling; Z79.899 Other long term (current) drug therapy; Z87.891 Personal history of nicotine dependence; Z88.0 Allergy status to penicillin; Z88.8 Allergy status to other drugs, medicaments and biological substances
CPT/HCPCS: 36415; 70450; 70551; 71046; 72125; 73502; 74018; 80053; 82150; 82607; 82746; 83690; 83735; 84484; 84550; 85025; 85610; 85730; 87040; 93005; 93270; 93306; 93880; 94760; 95816; 96374; 96375; 99285